=== PATIENT | female | born 1995 | race Caucasian/White ===

== ENCOUNTER 2019-05-12 17:05 | Emergency (ER) | payer BC ==
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
--- NOTE | 2019-05-12 18:11 | ER ---
Nurse's Notes [facility] Name: Lu Tiwari Age: 23 yrs Sex: Female : 1995 Arrival Date: 05/12/2019 Time: 17:07 Bed 8 Private MD: Diagnosis: Contusion of right knee Presentation: 05/12 17:09 Presenting complaint: Patient states: i fell on my RIGHT knee from standing like 2 tw2 hours ago, i have noticed some swelling and it feels like a lot of pressure. Transition of care: patient was not received from another setting of care. Onset of symptoms was May 12, 2019. Risk Assessment: Do you want to hurt yourself or someone else? Patient reports no desire to harm self or others. Initial Sepsis Screen: Does the patient meet any 2 criteria? No. Patient's initial sepsis screen is negative. Does the patient have a suspected source of infection? No. Patient's initial sepsis screen is negative. Care prior to arrival: None. 17:09 Method Of Arrival: Ambulatory tw2 17:09 Acuity: XANDER 4 tw2 Triage Assessment: 17:10 General: Appears in no apparent distress. Behavior is calm, cooperative, appropriate tw2 for age. Pain: Complains of pain in right knee. 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 - Social history:: Smoking status: . - Ebola Screening: : Patient denies travel to an Ebola-affected area in the 21 days before illness onset. - Family history:: not pertinent. - Hospitalizations: : No recent hospitalization is reported. Screenin:39 Abuse screen: Denies threats or abuse. Denies injuries from another. Nutritional aj1 screening: No deficits noted. Tuberculosis screening: No symptoms or risk factors identified. 19:00 Fall Risk None identified. aj1 Assessment: 17:39 General: Appears in no apparent distress. comfortable, Behavior is calm, cooperative, aj1 appropriate for age. Pain: Complains of pain in right knee. Neuro: Level of Consciousness is awake, alert, obeys commands, Oriented to person, place, time, situation. Cardiovascular: Patient's skin is warm and dry. Respiratory: Airway is patent Respiratory effort is even, unlabored, Respiratory pattern is regular, symmetrical. GI: No signs and/or symptoms were reported involving the gastrointestinal system. : No signs and/or symptoms were reported regarding the genitourinary system. EENT: No signs and/or symptoms were reported regarding the EENT system. Derm: No signs and/or symptoms reported regarding the dermatologic system. Skin is pink, warm \T\ dry. normal. Musculoskeletal: Range of motion: limited in right knee. 18:40 Reassessment: Patient appears in no apparent distress at this time. No changes from aj1 previously documented assessment. Patient and/or family updated on plan of care and expected duration. Pain level reassessed. Patient is alert, oriented x 3, equal unlabored respirations, skin warm/dry/pink. Vital Signs: 17:09 BP 122 / 71; Pulse 104; Resp 17; Temp 98.3; Pulse Ox 97% on R/A; Weight 55.34 kg (R); tw2 Pain 8/10; ED Course: 17:07 Patient arrived in ED. mr 17:09 Triage completed. tw2 17:11 Freedom Sinha MD is Attending Physician. rn 17:11 Arm band placed on. tw2 17:15 Elaine Hardwick, RN is Primary Nurse. aj1 17:39 Patient has correct armband on for positive identification. Bed in low position. Call aj1 light in reach. Side rails up X 1. 17:39 No provider procedures requiring assistance completed. aj1 18:28 XRAY Knee RIGHT 3 view In Process Unspecified. EDMS 18:59 Patient did not have IV access during this emergency room visit. Reynold wrap to right knee.aj1 Administered Medications: No medications were administered Outcome: 18:09 Discharge ordered by . rn 19:00 Discharged to home ambulatory. aj1 19:00 Condition: good 19:00 Discharge instructions given to patient, Instructed on discharge instructions, follow up and referral plans. Demonstrated understanding of instructions, follow-up care. 19:00 Patient left the ED. aj1 Signatures: Dispatcher [employer] EDGA Elaine Hardwick, RN RN aj1 Estefanía Velazquez mr Freedom Sinha MD MD rn Lee, LANETTE Clemente RN tw2
--- NOTE | 2019-05-12 18:40 | RAD REPORT ---
EXAM DESCRIPTION: RAD - Knee Right 3 View - 05/12/2019 6:26 pm CLINICAL HISTORY: Right knee pain status post injury FINDINGS: No fracture or dislocation is seen.
[2019-05-12 20:13] VITALS: BP 122/71; TEMP 98.3; O2SAT 97
== END 2019-05-12 19:00 | disposition home or self-care (01) ==
LOC: ER 17:05
DX: S80.01XA Contusion of right knee, initial encounter (principal); W18.30XA Fall on same level, unspecified, initial encounter; Y93.9 Activity, unspecified; Y92.9 Unspecified place or not applicable; Z88.6 Allergy status to analgesic agent; Z88.2 Allergy status to sulfonamides; Z88.8 Allergy status to other drugs, medicaments and biological substances
CPT/HCPCS: 99283

== ENCOUNTER 2019-08-09 23:24 | Emergency (ER) | payer BC ==
[2019-08-10] MEDS ORDERED: ONDANSETRON 4 MG/2 ML VIAL ONE (00:09)
[2019-08-10] MEDS ORDERED: NA CHLORIDE 0.9% 2,000 ML ONE (00:09)
[2019-08-10 01:09] LABS: Potassium 3.5 mmol/L (3.5-5.1)
--- NOTE | 2019-08-10 01:52 | EDPHYS ---
Physician Documentation [facility] Name: Lu Tiwari Age: 24 yrs Sex: Female : 1995 Arrival Date: 08/09/2019 Time: 23:27 Bed 14 Private MD: ED Physician Freedom Sinha HPI: 08/10 00:28 This 24 yrs old Female presents to ER via Wheelchair with complaints of rn ALCOHOL POISONING. 00:28 The patient presents with decreased mental status, decreased responsiveness. Possible rn causes: alcohol, has had a recent alcohol binge. Current symptoms: In the emergency department the patient's symptoms have improved. It is unknown whether or not the patient has had similar symptoms in the past. Significant other brought her in for possible ETOH poisoning, reports atleast 8 beers and tequila, + vomiting, and decreased responsiveness.. 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 - Coronavirus screen:: The patient has NOT traveled to [place], [place], or [place] in the past 14 days. Proceed with normal triage process as indicated. The patient has NOT had contact with known/suspected case of Coronavirus? Proceed with normal triage procedures. - Social history:: Smoking status: Patient denies any tobacco usage or history of. - Family history:: not pertinent. - Ebola Screening: : No symptoms or risks identified at this time. - Hospitalizations: : No recent hospitalization is reported. ROS: 08/10 00:28 Constitutional: Negative for fever, chills, and weight loss, Eyes: Negative for injury, rn pain, redness, and discharge, Neck: Negative for injury, pain, and swelling, Cardiovascular: Negative for chest pain, palpitations, and edema, Respiratory: Negative for shortness of breath, cough, wheezing, and pleuritic chest pain, Abdomen/GI: + nausea/vomiting MS/Extremity: Negative for injury and deformity, Skin: Negative for injury, rash, and discoloration, Neuro: Negative for headache, numbness, tingling, and seizure. Exam: 00:28 Constitutional: This is a well developed, well nourished patient who is awake, alert, rn somnolent but easily arousable to voice Head/Face: Normocephalic, atraumatic. Eyes: Pupils equal round and reactive to light, extra-ocular motions intact. Lids and lashes normal. Conjunctiva and sclera are non-icteric and not injected. Cornea within normal limits. Periorbital areas with no swelling, redness, or edema. ENT: dry MM Cardiovascular: Regular rate and rhythm. No pulse deficits. Respiratory: No increased work of breathing, no retractions or nasal flaring. Abdomen/GI: soft, non-tender MS/ Extremity: Pulses equal, no cyanosis. Neurovascular intact. Full, normal range of motion. Equal circumference. Neuro: Awake, somnolent, GCS 15, oriented to person, place, time, and situation. Cranial nerves II-XII grossly intact. Motor strength 5/5 in all extremities. Sensory grossly intact. Vital Signs: 08/09 23:31 BP 160 / 96; Pulse 90; Resp 16; Temp 98.1; Pulse Ox 99% on R/A; Weight 54.43 kg; Height hb 5 ft. 3 in. (160.02 cm); Pain 0/10; 08/10 01:15 BP 107 / 73; Pulse 92; Resp 18; Pulse Ox 99% on R/A; wh 08/09 23:31 Body Mass Index 21.26 (54.43 kg, 160.02 cm) hb MDM: 08/09 23:56 Patient medically screened. rn 08/10 01:48 Differential Diagnosis: alcohol intoxication, volume depletion. Data reviewed: vital rn signs, nurses notes, lab test result(s), and as a result, I will discharge patient. Counseling: I had a detailed discussion with the patient and/or guardian regarding: the historical points, exam findings, and any diagnostic results supporting the discharge/admit diagnosis, lab results, the need for outpatient follow up, to return to the emergency department if symptoms worsen or persist or if there are any questions or concerns that arise at home. Response to treatment: the patient's symptoms have markedly improved after treatment, the patient is now symptom free, patient is well hydrated. and as a result, I will discharge patient. 01:50 ED course: Pt awake, sobering up, tolerating PO, asymptomatic, stable vitals, requests rn to go home with significant other and sleep it off.. 08/10 00:49 Order name: Basic Metabolic Panel; Complete Time: 01:10 EDMS 08/10 00:49 Order name: Alcohol Serum/Plasma; Complete Time: 01:51 EDMS 08/10 00:02 Order name: IV Start; Complete Time: 00:11 rn Administered Medications: 00:20 Drug: NS 0.9% 1000 ml Route: IV; Rate: 1000 ml; Site: right antecubital; ch2 02:01 Follow up: Response: No adverse reaction; IV Status: Completed infusion 00:20 Drug: NS 0.9% 1000 ml Route: IV; Rate: 1000 ml; Site: right antecubital; ch2 02:00 Follow up: Response: No adverse reaction; IV Status: Completed infusion 00:20 Drug: Zofran 4 mg Route: IVP; Site: right antecubital; ch2 02:01 Follow up: Response: No adverse reaction; Nausea is decreased wh Disposition: 08/10/19 01:51 Discharged to Home. Impression: Alcohol abuse with intoxication. - Condition is Stable. - Discharge Instructions: Alcohol Intoxication. - Medication Reconciliation Form, Thank You Letter, Antibiotic Education, Prescription Opioid Use form. - Follow up: Private Physician; When: As needed; Reason: Recheck today's complaints, Re-evaluation by your physician. - Problem is new. - Symptoms have improved. Signatures: Dispatcher [employer] [facility] Freedom Sinha MD MD rn Baxter, Heather, RN RN Ash Johnson Tata Moreno RN RN ch2 Corrections: (The following items were deleted from the chart) 02:04 01:51 08/10/2019 01:51 Discharged to Home. Impression: Alcohol abuse with intoxication. wh Condition is Stable. Forms are Medication Reconciliation Form, Thank You Letter, Antibiotic Education, Prescription Opioid Use. Follow up: Private Physician; When: As needed; Reason: Recheck today's complaints, Re-evaluation by your physician. Problem is new. Symptoms have improved. rn
--- NOTE | 2019-08-10 01:52 | ER ---
Nurse's Notes [facility] Name: Lu Tiwari Age: 24 yrs Sex: Female : 1995 Arrival Date: 08/09/2019 Time: 23:27 Bed 14 Private MD: Diagnosis: Alcohol abuse with intoxication Presentation: 08/09 23:30 Presenting complaint: Significant other states: "She drank 8 beers and half a bottle of hb tequila, has been vomiting, I think she has alcohol poisoning.". Transition of care: patient was not received from another setting of care. Onset of symptoms was August 09, 2019. Risk Assessment: Do you want to hurt yourself or someone else? Patient reports no desire to harm self or others. Care prior to arrival: None. 23:30 Method Of Arrival: Wheelchair hb 23:30 Acuity: XANDER 3 08/10 00:30 Initial Sepsis Screen: Does the patient meet any 2 criteria? No. Patient's initial sepsis screen is negative. Does the patient have a suspected source of infection? No. Patient's initial sepsis screen is negative. 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 - Coronavirus screen:: The patient has NOT traveled to [place], [place], or [place] in the past 14 days. Proceed with normal triage process as indicated. The patient has NOT had contact with known/suspected case of Coronavirus? Proceed with normal triage procedures. - Social history:: Smoking status: Patient denies any tobacco usage or history of. - Family history:: not pertinent. - Ebola Screening: : No symptoms or risks identified at this time. - Hospitalizations: : No recent hospitalization is reported. Screenin/26 00:30 Abuse screen: Denies threats or abuse. Denies injuries from another. Nutritional wh screening: No deficits noted. Tuberculosis screening: No symptoms or risk factors identified. Fall Risk None identified. Assessment: 00:10 General: Appears in no apparent distress. Behavior is drowsy, Smells of alcohol. Pain: wh Denies pain. Neuro: Level of Consciousness is awake, alert, obeys commands, Oriented to person, place, time, situation, Appropriate for age. Cardiovascular: Heart tones S1 S2. Respiratory: Airway is patent Respiratory effort is even, unlabored, Respiratory pattern is regular, symmetrical, Breath sounds are clear bilaterally. GI: Abdomen is flat, non-distended, Parent/caregiver reports the patient having nausea, vomiting. : No signs and/or symptoms were reported regarding the genitourinary system. EENT: No signs and/or symptoms were reported regarding the EENT system. Derm: Skin is intact, is healthy with good turgor, Skin is pink, warm \\T\\ dry. normal. Musculoskeletal: Circulation, motion, and sensation intact. : Reassessment: Patient appears in no apparent distress at this time. No changes from previously documented assessment. Patient and/or family updated on plan of care and expected duration. Pain level reassessed. Patient is alert, oriented x 3, equal unlabored respirations, skin warm/dry/pink. Vital Signs: 08/09 23:31 BP 160 / 96; Pulse 90; Resp 16; Temp 98.1; Pulse Ox 99% on R/A; Weight 54.43 kg; Height hb 5 ft. 3 in. (160.02 cm); Pain 0/10; 08/10 01:15 BP 107 / 73; Pulse 92; Resp 18; Pulse Ox 99% on R/A; wh 08/09 23:31 Body Mass Index 21.26 (54.43 kg, 160.02 cm) hb ED Course: 08/09 23:27 Patient arrived in ED. [id number] 23:31 Triage completed. hb 23:32 Arm band placed on. hb 23:56 Freedom Sinha MD is Attending Physician. rn 08/10 00:11 Inserted saline lock: 20 gauge in right antecubital area, using aseptic technique. oe Blood collected. 00:28 Ash Johnson is Primary Nurse. 00:30 Patient has correct armband on for positive identification. Bed in low position. Call light in reach. Side rails up X 1. Adult w/ patient. Pulse ox on. NIBP on. 01:58 No provider procedures requiring assistance completed. IV discontinued, intact, bleeding controlled, No redness/swelling at site. Administered Medications: 00:20 Drug: NS 0.9% 1000 ml Route: IV; Rate: 1000 ml; Site: right antecubital; [facility] 02:01 Follow up: Response: No adverse reaction; IV Status: Completed infusion 00:20 Drug: NS 0.9% 1000 ml Route: IV; Rate: 1000 ml; Site: right antecubital; ch2 02:00 Follow up: Response: No adverse reaction; IV Status: Completed infusion 00:20 Drug: Zofran 4 mg Route: IVP; Site: right antecubital; ch2 02:01 Follow up: Response: No adverse reaction; Nausea is decreased Outcome: 01:51 Discharge ordered by MD. rn 01:58 Discharged to home ambulatory, with family. 01:58 Condition: stable 01:58 Discharge instructions given to patient, family, Instructed on discharge instructions, follow up and referral plans. POC Demonstrated understanding of instructions, follow-up care, POC 02:04 Patient left the ED. Signatures: Freedom Sinha MD MD rn Baxter, Heather, RN RN hb [place]spin[place], Orlando oe [place], Winsy Tata Moreno RN RN [facility] Davina Pham [id number]
[2019-08-10 03:04] VITALS: TEMP 98.1; O2SAT 99
[2019-08-10 03:06] VITALS: BP 107/73
== END 2019-08-10 02:04 | disposition home or self-care (01) ==
LOC: ER 23:24
DX: F10.129 Alcohol abuse with intoxication, unspecified (principal); Z88.6 Allergy status to analgesic agent; Z88.2 Allergy status to sulfonamides
CPT/HCPCS: 96361; 80048; 36415; 80320; 96374; 99284; J7030; J2405

== ENCOUNTER 2020-06-09 13:24 | Emergency (ER) | payer BC, OTHER ==
--- OUTSIDE RECORDS SUMMARY | 2020-06-09 13:56 | XMS REPORT | Summary of Care ---
:1995 Author Organization [facility] Address [address] [place] [address] Care Team Providers Name Role Phone Pcp, Does Not Have A Primary Care Provider Reason for Visit Reason Comments Referral/consult Ultrasound Encounter Details Date Type Department Care Team Description 05/31/2020 Telephone [facility] Shannon Canas, Referral/c [facility] [address] [facility] [address] [place] [phone] Allergies Active Allergy Reactions Severity Noted Date Comments Morphine Anaphylaxis, Hives High 05/26/2020 Sulfa (Sulfonamide Antibiotics) Anaphylaxis, Hives High 05/2020 documented as of this encounter (statuses as of 05/31/2020) Medications Medication Sig Dispensed Refills Start Date End Date Status multivitamin Take 1 tablet by 0 Active ( VITAMIN) mouth daily. tablet proMETHazine 12.5 mg Take 1 tablet by 30 tablet 1 05/26/2020 Active tabletIndications: mouth every 6 Supervision of other (six) hours as high risk pregnancies, needed for Nausea first trimester, and Vomiting (N/V) Nausea and vomiting for up to 60 during prior doses. to 22 weeks gestation documented as of this encounter (statuses as of 05/31/2020) Active Problems Problem Noted Date Previous delivery affecting 020 Hx of twin in prior 05/26/2020 Estimated Date of Delivery Comments Yes 01/03/2021 Based on last menstr ual period of 03/29/2020 (Exact Date) documented as of this encounter (statuses as of 05/31/2020) Immunizations Name Administration Dates Next Due HIB 4 Dose Schedule 10/10/1994 Influenza Virus Vaccine Quad .5 mL IM 05/26/2020 (Deferred: Patient Refused) 6+ MO MMR 10/10/1994 PPD (TB) 10/10/1994 documented as of this encounter Social History Tobacco Use Types Packs/Day Years Used Date Never Smoker Smokeless Tobacco: Never Used Alcohol Use Drinks/Week oz/Week Comments Never Alcohol Habits Answer Date Recorded How often do you have a drink containing alcohol? Never 05/26/2020 How many drinks containing alcohol do you have on a typical Not asked day when you are drinking? How often do you have six or more drinks on one occasion? 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 documented as of this encounter Last Filed Vital Signs Not on filedocumented in this encounter Miscellaneous Notes Telephone Encounter - Yamileth Fulton - 05/31/2020 1:19 PM Floyd Tiwari is a 24 year old female Patient has been approved for medicaid she is requesting USG appointment. elephone Encounter - Radha Meza RN - 05/31/2020 10:21 AM CSTCalled patient, notified her that we will let the financial screeners know to update and then we will place order for US appointment to be made. Pt v/u. elephone Encounter - Chelsie Pantoja - 05/31/2020 8:02 AM CSTLu Tiwari is a 24 year old female Patient stated she received her insurance and was told to call one she gets it to get her ultrasound. Please call and advise documented in this encounter Plan of Treatment Date Type Specialty Care Team Description 06/16/2020 Routine Visit OB Satellites Salazar Canas, [facility] [address] [place] [phone] Health Maintenance Due Date Last Done Comments DTaP,Tdap,and Td Vaccines (1 - 2012 Tdap) PAP SMEAR 2014 HPV VACCINES (1 - 2-dose series) 07/26/2020 Postponed from 2004 (Refused) INFLUENZA VACCINE (#1) 2021 Postponed from 03/16/2020 (Refused) Depression Screening 05/26/2021 05/26/2020 VARICELLA VACCINES (1 of 2 - 05/26/2021 Pos tponed from 1994 2-dose childhood series) (Refuse d) PNEUMOCOCCAL 0-64 YEARS COMBINED Aged Out No longer eligible based on SERIES patient's age to complete this topic documented as of this encounter Results Not on filedocumented in this encounter Insurance Payer Benefit Plan / Subscriber ID Effective Dates Phone Addre ss Type Group [facility] MEDICAID OF [id number] 2020-Niharika [phone] [address] [place] t [id number] [place] [address] documented as of this encounter
--- OUTSIDE RECORDS SUMMARY | 2020-06-09 13:56 | XMS REPORT | Summary of Care ---
:1995 Author Organization [facility] Address [address] [place] [address] Care Team Providers Name Role Phone Pcp, Does Not Have A Primary Care Provider Reason for Visit Reason Comments Prescription nausea and vomit - phenergan not working - Dicligis ordered Encounter Details Date Type Department Care Team Description 06/02/2020 Case Management [facility] Shannon Canas, Prescri ption (nausea [facility] and vomit - phenergan [address] [facility] [address] [facility] not worki ng - [facility] Dicligis ordered) [place] [phone] Allergies Active Allergy Reactions Severity Noted Date Comments Morphine Anaphylaxis, Hives High 05/26/2020 Sulfa (Sulfonamide Antibiotics) Anaphylaxis, Hives High 05/2020 documented as of this encounter (statuses as of 06/02/2020) Medications Medication Sig Dispensed Refills Start Date End Date Status multivitamin Take 1 tablet by 0 Active ( VITAMIN) mouth daily. tablet proMETHazine 12.5 mg Take 1 tablet by 30 tablet 1 05/26/2020 Active tabletIndications: mouth every 6 Supervision of other (six) hours as high risk needed for Nausea pregnancies, first and Vomiting trimester, Nausea and (N/V) for up to vomiting during 60 doses. prior to 22 weeks gestation doxylamine-pyridoxine Take 2 tablets by 60 tablet 1 06/02/2020 2020 Active , vit B6, (DICLEGIS) mouth at bedtime 10-10 mg per for 60 days. tabletIndications: Nausea and vomiting during prior to 22 weeks gestation, Supervision of other high risk pregnancies, first trimester, Previous delivery affecting documented as of this encounter (statuses as of 06/02/2020) Active Problems Problem Noted Date Previous delivery affecting 020 Hx of twin in prior 05/26/2020 Estimated Date of Delivery Comments Yes 01/03/2021 Based on last menstr ual period of 03/29/2020 (Exact Date) documented as of this encounter (statuses as of 06/02/2020) Immunizations Name Administration Dates Next Due HIB [...] with No / Unsure 05/26/2020 1:[address]ER someone who was confirmed or suspected to have Coronavirus / COVID-19? documented as of this encounter Last Filed Vital Signs Not on filedocumented in this encounter Plan of Treatment Date Type Specialty Care Team Description 06/04/2020 Principal Statistical Programmer Visit Maternal Medicine 06/16/2020 Routine OB Satellites Shannon Canas, Visit [facility] [address] [place] [phone] Health Maintenance Due Date Last Done Comments DTaP,Tdap,and Td Vaccines ( - 2012 Tdap) PAP SMEAR 2014 HPV [...] Results Not on filedocumented in this encounter Visit Diagnoses Diagnosis Nausea and vomiting during miguel a or to 22 weeks gestation - Primary Supervision of other high risk pregnanci es, first trimester Previous delivery affecting pre gnancy Previous delivery, unspecified as to episode of care or not applicable documented in this encounter Insurance Payer Benefit Plan / Subscriber ID Effective Dates Phone Addre ss Type Group [employer] MEDICAID OF [id number] 2020-Niharika [phone] Medicaid [place] t [id number] [place] [address] documented as of this encounter
--- OUTSIDE RECORDS SUMMARY | 2020-06-09 13:56 | XMS REPORT | Summary of Care ---
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 documented as of this encounter Last Filed Vital Signs Not on filedocumented in this encounter Plan of Treatment Date Type Specialty Care Team Description 06/04/2020 Staff Analyst Visit Maternal Medicine 06/16/2020 Routine OB Satellites Shannon Canas, Visit [facility] [address] [place] [phone] Health Maintenance Due Date Last Done Comments [...] Addre ss Type Group [employer] MEDICAID OF [id number] 2020-Niharika [phone] [address] Medicaid [place] t [id number] [place] [address] documented as of this encounter
--- OUTSIDE RECORDS SUMMARY | 2020-06-09 13:56 | XMS REPORT | Summary of Care ---
:1995 Author Organization [facility] Address [address] [place] [address] Care Team Providers Name Role Phone Pcp, Does Not Have A Primary Care Provider Reason for Referral (Routine) Status Reason Specialty Diagnoses / Referred By Referred To Procedures Contact Contact New Request Maternal Diagnoses Supervision of other high risk pregnancies, first trimester Previous delivery affecting Hx of twin in prior BMI 21.0-21.9, adult Shannon Canas Medicine Procedures CONSULT MATERNAL MEDICINE ULTRASOUND Preferred Location: [facility] [address] [phone] Reason for Visit Reason Comments ULTRASOUND Requested - Dating Encounter Details Date Type Department Care Team Description 05/31/2020 Case Management [facility] Shannon Caans PREGNAN CY ULTRASOUND [facility] (Requested - Dating [address] [place] [address] ) [place] [phone] Allergies Active Allergy Reactions Severity Noted Date [...] with No / Unsure 05/26/2020 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 documented as of this encounter Last Filed Vital Signs Not on filedocumented in this encounter Plan of Treatment Date Type Specialty Care Team Description 06/16/2020 Routine Visit OB Satellites Salazar Canas, [facility] [address] [place], [place] [phone] Health Maintenance Due Date Last Done Comments [...] filedocumented in this encounter Visit Diagnoses Diagnosis Supervision of other high risk pregnanci es, first trimester - Primary Previous delivery affecting pre gnancy Previous delivery, unspecified as to episode of care or not applicable Hx of twin in prior Personal history of other genital system and obstetric disorders BMI 21.0-21.9, adult documented in this encounter Insurance Payer Benefit Plan / Subscriber ID Effective Dates Phone Addre ss Type Group [employer] MEDICAID OF [id number] 2020-Niharika [phone] [address] Medicaid [place] t [id number] [place] [address] documented as of this encounter
--- OUTSIDE RECORDS SUMMARY | 2020-06-09 13:56 | XMS REPORT | Summary of Care ---
:1995 Author Organization [facility] Address [address] [place] [address] Care Team Providers Name Role Phone Pcp, Does Not Have A Primary Care Provider Reason for Visit Reason Comments Initial Visit Encounter Details Date Type Department Care Team Description 05/26/2020 Initial [facility] Shannon Canas Superv ision of other high risk pregnancies, first trimester (Primary Dx); Visit [facility] Previous delivery affecting pre gnancy; [address] [address] [address] Hx of twi n in prior ; [facility] BMI 21.0-21.9, adult; [place], [place] Absence of menstruation; [id number] Exposure to COVID-19 virus; [phone] Nausea and vomiting during miguel a or to 22 weeks gestation Allergies Active Allergy Reactions Severity Noted Date Comments Morphine Anaphylaxis, Hives High 05/26/2020 Sulfa (Sulfonamide Antibiotics) Anaphylaxis, Hives High 05/2020 documented as of this encounter (statuses as of 05/26/2020) Medications Medication Sig Dispensed Refills Start Date [...] as of this encounter (statuses as of 05/26/2020) Active Problems Problem Noted Date Previous delivery affecting 020 Hx of twin in prior 05/26/2020 Estimated Date of Delivery Comments Yes 01/03/2021 Based on last menstr ual period of 03/29/2020 (Exact Date) documented as of this encounter (statuses as of 05/26/2020) Immunizations Name Administration Dates Next Due HIB [...] with No / Unsure 05/26/2020 1:20 PM LETTER CARRIER someone who was confirmed or suspected to have Coronavirus / COVID-19? documented as of this encounter Last Filed Vital Signs Vital Sign Reading Time Taken Comments Blood Pressure 113/79 05/26/2020 1:20 PM LETTER CARRIER Pulse 96 05/26/2020 1:20 PM LETTER CARRIER Temperature 37.2 C (99 F) 05/26/2020 1:20 PM LETTER CARRIER Respiratory Rate 20 05/26/2020 1:20 PM LETTER CARRIER Oxygen Saturation - - Inhaled Oxygen Concentration - - Weight 52.7 kg (116 lb 3.2 oz) 05/26/2020 1:20 PM LETTER CARRIER Height 154.9 cm (5' 1") 05/26/2020 1:20 PM LETTER CARRIER Body Mass Index 21.96 05/26/2020 1:20 PM LETTER CARRIER documented in this encounter Progress Notes Shannon Canas, CNP - 05/26/2020 1:30 PM CST Chief complaint: Chief Complaint Patient presents with Initial Visit CC: Initial Visit Lu Tiwari is a 24 year old, , /White female. Patient's last menstrual period was 03/29/2020 (exact date). She is 8w2d with an intrauterine . Her Estimated Date of Delivery: 01/03/21. She is being seen today for her first obstetrical visit. She complains today of: Nausea. She reports daily episodes of nausea over 1-2 wks which occurs intermittently. Patient tolerates liquids and some food. Associated symptom(s) include dry heaves. Symptoms are worse with food odors and smoke. Symptoms are relieved with avoidance of odors and crackers. Vomiting. She reports 2 episodes of vomiting over 1-2 week(s) and occurs in the mornings. Associated symptom(s) include nausea. Symptoms are worse with foods, liquids and odors. OB History T1 L3 SAB0 TAB0 Ectopic0 Multiple1 Live Births3 Name of Baby 1: Not recorded Date: 05/13/11 GA: 38w0d Delivery: Normal Spontaneous Vaginal Apgar1: Not recorded Apgar5: Not recorded Living: Living Name of Baby 2A: Not recorded Date: 11/13/12 GA: 30w0d Delivery: , Low Transverse Apgar1: Not recorded Apgar5: Not recorded Living: Living Name of Baby 2B: Not recorded Date: 11/13/12 GA: 30w0d Delivery: , Low Transverse Apgar1: Not recorded Apgar5: Not recorded Living: Living Name of Baby 3: Not recorded Date: Not recorded GA: Not recorded Delivery: Not recorded Apgar1: Not recorded Apgar5: Not recorded Living: Not recorded Histories OB History Para Term AB Living 3 2 1 1 0 3 SAB TAB Ectopic Multiple Live Births 0 0 0 1 3 # Outcome Date GA Lbr Alli/2nd Weight Sex Delivery Anes PTL Lv 3 Current 2A 11/13/12 30w0d 6 lb (2.722 kg) M , L Spinal Y JOHNATHON Complications: Other (See Comments), Premature rupture of membranes 2B 05/01/13 30w0d 5 lb (2.268 kg) F , L Spinal N JOHNATHON Complications: Premature rupture of membranes 1 Term 05/13/11 38w0d 7 lb (3.175 kg) F NORMAL SPONT None JOHNATHON Past Medical History: Diagnosis Date Anemia 2010 no medication taken. Hx of blood transfusion after deliveries x 3 Family History Problem Relation Age of Onset No Significant Medical Problems Mother No Significant Medical Problems Father No Significant Medical Problems Sister Psychiatry Brother No Significant Medical Problems Maternal Aunt No Significant Medical Problems Maternal Uncle No Significant Medical Problems Paternal Aunt No Significant Medical Problems Paternal Uncle No Significant Medical Problems Maternal Grandmother Cancer Maternal Grandfather No Significant Medical Problems Paternal Grandmother No Significant Medical Problems Paternal Grandfather No Significant Medical Problems Other Family Status Relation Name Status Mo (Not Specified) Fa (Not Specified) Sis (Not Specified) Bro Other Severe Bi-Polar MAunt (Not Specified) MUnc (Not Specified) PAunt (Not Specified) PUnc (Not Specified) MGMo (Not Specified) MGFa Other cardiac cancer PGMo (Not Specified) PGFa (Not Specified) OTHER (Not Specified) Past Surgical History: Procedure Laterality Date SECTION 2010 and 2012 Social History Socioeconomic History Marital status: Single Spouse name: Not on file Number of children: Not on file Years of education: Not on file Highest education level: Not on file Occupational History Not on file Social Needs Financial resource strain: Not on file Food insecurity Worry: Not on file Inability: Not on file Transportation needs Medical: Not on file Non-medical: Not on file Tobacco Use Smoking status: Never Smoker Smokeless tobacco: Never Used Substance and Sexual Activity Alcohol use: Never Frequency: Never Drug use: Never Sexual activity: Yes Partners: Male control/protection: None Lifestyle Physical activity Days per week: Not on file Minutes per session: Not on file Stress: Not on file Relationships Social connections Talks on phone: Not on file Gets together: Not on file Attends roman catholic service: Not on file Active member of club or organization: Not on file Attends meetings of clubs or organizations: Not on file Relationship status: Not on file Intimate partner violence Fear of current or ex partner: Not on file Emotionally abused: Not on file Physically abused: Not on file Forced sexual activity: Not on file Other Topics Concern Not on file Social History Narrative Lives in an apartment with her children, feels safe, denies abuse or violence at this time. Social History Substance and Sexual Activity Sexual Activity Yes Partners: Male control/protection: None Genetic Screen No Significant History of Genetic Disorders: No Significant History of Genetic Disorders Labs Labs are pending. Radiology No new radiology. Allergies Lu is allergic to morphine and sulfa (sulfonamide antibiotics). Medications Lu has a current medication list which includes the following prescription(s): vitamin and promethazine. Review of Systems Constitutional: Negative for activity change, appetite change, fatigue, fever and unexpected weight change. Eyes: Negative for photophobia, pain, discharge, redness, itching and visual disturbance. Respiratory: Negative for shortness of breath. Breasts: Negative for discharge, mass, pain and unequal size. Cardiovascular: Negative for chest pain, palpitations and leg swelling. Gastrointestinal: Negative for abdominal pain, diarrhea, nausea and vomiting. Genitourinary: Negative for dysuria, urgency, frequency, vaginal bleeding, vaginal discharge, difficulty urinating, vaginal pain and dyspareunia. Musculoskeletal: Negative for arthralgias, back pain, gait problem, joint swelling, myalgias and neck stiffness. Skin: Negative for color change, pallor, rash and wound. Neurological: Negative for dizziness, light-headedness and headaches. Psychiatric/Behavioral: Negative for sleep disturbance and suicidal ideas. BP 113/79 (BP Location: Left arm, Patient Position: Sitting) | Pulse 96 | Temp 37.2 C (99 F) (Oral) | Resp 20 | Ht 5' 1" (1.549 m) | Wt 116 lb 3.2 oz (52.7 kg) | LMP 03/29/2020 (Exact Date) | BMI 21.96 kg/m Pregravid BMI: 21.93 Physical Exam Vitals reviewed. Constitutional: She is oriented to person, place, and time. She appears well- developed, well-nourished and well-groomed. Her body habitus is normal. She has no deformities. Cardiovascular: Regular rate and rhythm. Pulmonary/Chest: Normal inspiratory effort. Neuro/Psychiatric: She has a normal mood and affect. She is oriented to person, place, and time. PHYSICAL: General Exam: Abdomen: Normal Skin: Normal Extremities: Normal Pelvic Exam: Membrane status: Intact Uterus: 8 Weeks Assessment/Plan - See OB Summary Note Pt denies any current abuse and feels safe at home Immunizations reviewed. If necessary patient advised to obtain vaccines from local Health department. Pt denies any emotional, physical, or sexual abuse/trauma/depression. History reviewed and patient counseled as per [facility] teaching guidelines. A spring layer present in room upon examination. Pt advised to RTC to clinic PRN. Immunization History Administered Date(s) Administered HIB 4 Dose Schedule 10/10/1994 MMR 10/10/1994 PPD (TB) 10/10/1994 Pended Date(s) Pended Influenza Virus Vaccine Quad .5 mL IM 6+ MO 05/26/2020 Supervision of other high risk pregnancies, first trimester (primary encounter diagnosis) Comment: Plan: CBC WITH DIFF, GC & CHLAMYDIA AMPLIFIED ASSAY, HEPATITIS B SURFACE ANTIGEN, HIV 1/2 AG-AB WITH REFLEX, POCT URINALYSIS W SPECIFIC GRAVITY, WORKUP, BLOOD BANK, RUBELLA SCREEN (ISAC) IGG, GALV ONLY - SYPHILIS IGG/IGM, URINE CULTURE, Glucose 1 Hour Post Prandial, FLU VACC([id number]), 6+ MONTHS, IM, QUAD (FLUZONE/FLULAVAL/FLUARIX), SARS-COV-2 IGG, WORKUP, BLOOD BANK, POCT URINALYSIS W SPECIFIC GRAVITY, Glucose 1 Hour Post Prandial, proMETHazine 12.5 mg tablet Previous delivery affecting Comment: Plan: Hx of twin in prior Comment: Plan: BMI 21.0-21.9, adult Comment: Plan: Absence of menstruation Comment: Plan: POCT TEST Exposure to COVID-19 virus Comment: Plan: SARS-COV-2 IGG Nausea and vomiting during prior to 22 weeks gestation Comment: Plan: proMETHazine 12.5 mg tablet Return to clinic in 3 weeks. Discussed treatment options. Medications as ordered. Reviewed patient instructions and provided printed copy. at 8w2d This visit did not involve counseling and coordination that comprised more than 50% of the visit time. ER CARRIER Radha Meza RN - 05/26/2020 1:30 PM CSTPt here for initial OB visit. Pt states last pap was in 2018 and [facility] [place]. ZOEY signed by patient for records. No issues or problems with this so far. Suspects it may be twin gestation again. Has Nausea with . ER CARRIER documented in this encounter Miscellaneous Notes OB Summary Note - Shannon Canas WHCNP - 05/26/2020 1:30 PM CSTAge: 24 year old GA: 8w2d Plan USG with Funding - patient to notify with Medicaid Family Hx of Multiples then C/S for Twin IUP and 30wks per patient - NEED ZOEY Per patient allergic to Morphine - ZOEY pending for last delivery Happy about planned Nausea and many day vomit - ERX Phenergan - Breast pain - comfort measures BMI = 21 - TWG Goal 10-15lbs Flu Vaccine Declined NOB labs and education today denies any other problems Pt denies recent travel out of country, by herself or SO, Counseled regarding COVID 19 or ZIKA - Prevention discussed ER CARRIER documented in this encounter Plan of Treatment Date Type Specialty Care Team Description 06/16/2020 Routine Visit OB Satellites Salazar Canas WHCNP [address] [phone] Name Type Priority Associated Diagnoses Date/Ti me CBC WITH DIFF LAB Routine Supervision of other high 1 07/26/2019 2:36 PM LETTER CARRIER risk pregnancies, first trimester GC & CHLAMYDIA LAB Routine Supervision of other high 05/26/2020 2:36 PM LETTER CARRIER AMPLIFIED ASSAY risk pregnancies, first trimester HEPATITIS B SURFACE LAB Routine Supervision of other high 05/26/2020 2:36 PM LETTER CARRIER ANTIGEN risk pregnancies, first trimester HIV 1/2 AG-AB WITH LAB Routine Supervision of other h igh 05/26/2020 2:36 PM LETTER CARRIER REFLEX risk pregnancies, first trimester RUBELLA SCREEN (ISAC) LAB Routine Supervision of h er high 05/26/2020 2:36 PM LETTER CARRIER IGG risk pregnancies, first trimester GALV ONLY - SYPHILIS LAB Routine Supervision of other high 05/26/2020 2:36 PM LETTER CARRIER IGG/IGM risk pregnancies, first trimester URINE CULTURE LAB Routine Supervision of other high 1 07/26/2019 2:36 PM LETTER CARRIER risk pregnancies, first trimester Glucose 1 Hour Post LAB Routine Supervision of other high 05/26/2020 2:36 PM LETTER CARRIER Prandial risk pregnancies, first trimester SARS-COV-2 IGG LAB Routine Supervision of other high 05/26/2020 2:36 PM LETTER CARRIER risk pregnancies, first trimester Exposure to COVID-19 virus Name Type Priority Associated Diagnoses Order S chedule POCT URINALYSIS W LAB Routine Supervision of other 20 Occurrences SPECIFIC GRAVITY high risk starting pregnancies, first until 01/2021, 1 trimester completed WORKUP, LAB Routine Supervision of other Exp ected: 05/26/2020, BLOOD BANK high risk Expires: 2020 pregnancies, first trimester Glucose 1 Hour Post LAB Routine Supervision of other Expected: 05/26/2020, Prandial high risk Expires: 2020 pregnancies, first trimester FLU VACC([id number]), IMMUNIZATION/I Routine Supervision of oth er Ordered: 05/26/2020 6+ MONTHS, IM, QUAD NJECTION high risk (FLUZONE/FLULAVAL/FL pregnancies, first UARIX) trimester Health Maintenance Due Date Last Done Comments [...] this topic documented as of this encounter Procedures Procedure Name Priority Date/Time Associated Diagnosis Comme nts POCT URINALYSIS Routine 05/26/2020 2:44 Supervision of other Results for this PM LETTER CARRIER high risk procedure are i n pregnancies, first the resul ts trimester section. POCT TEST Routine 05/26/2020 1:24 Absence of Resu lts for this PM LETTER CARRIER menstruation procedure are i n the results section. documented in this encounter Results POCT URINALYSIS W SPECIFIC GRAVITY (05/26/2020 2:44 PM LETTER CARRIER) Pathologist Sig nature POCT U SP GRAV na 1.005 - 1.025 mg/dl POCT PH U 7 5 - 8 mg/dl POCT U LEUK EST 2+ Negative - Negative POCT U NIT neg Negative - Negative POCT U PROT trace Negative - Negative POCT U GLU neg Negative - Negative POCT U KETONE neg Negative - Negative POCT U UROBILI na 0.2 - 1 mg/dl POCT U BILI na Negative - Negative POCT U BLD neg Negative - Negative POCT U COLOR POCT U APPEAR Specimen Urine - URINE, CLEAN CATCH Impressions Performed At [facility] development and interpretation of all internal controls POCT TEST (05/26/2020 1:24 PM LETTER CARRIER) Pathologist Sig nature POCT PREG Positive On board controls acceptable Yes with C Line POCT PREG LOT # POCT PREG TEST DATE Specimen Urine - URINE, CLEAN CATCH documented in this encounter Visit Diagnoses Diagnosis Supervision of other high risk pregnanci es, first trimester - Primary Previous delivery affecting pre gnancy Previous delivery, unspecified as to episode of care or not applicable Hx of twin in prior Personal history of other genital system and obstetric disorders BMI 21.0-21.9, adult Absence of menstruation Exposure to COVID-19 virus Nausea and vomiting during miguel a or to 22 weeks gestation documented in this encounter Insurance Payer Benefit Plan / Subscriber ID Effective Phone Address T ype Group Dates MEDICAID MEDICAID PENDING 2020-Pre [address] [place] [address] Pending [place] [address] documented as of this encounter
--- OUTSIDE RECORDS SUMMARY | 2020-06-09 13:57 | XMS REPORT | Summary of Care ---
:1995 Author Organization [facility] Address [address] [place] [address] Care Team Providers Name Role Phone Pcp, Does Not Have A Primary Care Provider Reason for Visit Reason Comments ULTRASOUND (Routine) Status Reason Specialty Diagnoses / Referred By Referred To Procedures Contact Contact Closed Maternal Diagnoses Supervision of other high risk pregnancies, first trimester Previous delivery affecting Hx of twin in prior BMI 21.0-21.9, adult Shannon Canas, Medicine Procedures CONSULT MATERNAL MEDICINE ULTRASOUND Preferred Location: [address] [address] Encounter Details Date Type Department Care Team Description 06/04/2020 Book Editor Visit [facility] Sandoval Barker, Ma deshawn size-date discrepancy in first trimester; Ultrasound-Melanie PIEDRA Supervision of high risk in fi rst trimester; [address] Previous delivery, antepartum c ondition or complication; [address] [place], [place] w ith history of pre-term labor, first trimester; [facility] [phone] Dichorionic diamniotic twin in first trimester [place], [place] [phone] Allergies Active Allergy Reactions Severity Noted Date Comments Morphine Anaphylaxis, Hives High 05/26/2020 Sulfa (Sulfonamide Antibiotics) Anaphylaxis, Hives High 05/2020 documented as of this encounter (statuses as of 06/04/2020) Medications Medication Sig Dispensed Refills Start Date [...] as of this encounter (statuses as of 06/04/2020) Active Problems Problem Noted Date Previous delivery affecting 020 Hx of twin in prior 05/26/2020 Estimated Date of Delivery Comments Yes 01/03/2021 Based on last menstr ual period of 03/29/2020 (Exact Date) documented as of this encounter (statuses as of 06/04/2020) Immunizations Name Administration Dates Next Due HIB [...] been in contact with No / Unsure 06/04/2020 1:21 PM STATOR WINDER someone who was confirmed or suspected to have Coronavirus / COVID-19? documented as of this encounter Last Filed Vital Signs Not on filedocumented in this encounter Plan of Treatment Date Type Specialty Care Team Description 06/16/2020 Routine Visit OB Satellites Salazar Canas, [facility] [address] [place], [place] [phone] Health Maintenance Due Date Last Done Comments [...] filedocumented in this encounter Visit Diagnoses Diagnosis Uterine size-date discrepancy in first t rimester Uterine size date discrepancy, antepartu m condition or complication Supervision of high risk in rst trimester Unspecified high-risk Previous delivery, antepartum c ondition or complication with history of pre-term labor , first trimester Dichorionic diamniotic twin in first trimester Twin , antepartum documented in this encounter Insurance Payer Benefit Plan / Subscriber ID Effective Dates Phone Addre ss Type Group [facility] MEDICAID OF [id number] 2020-Presen [phone] Medicaid [place] t [id number] [place] [address] documented as of this encounter
[2020-06-09] MEDS ORDERED: ONDANSETRON 4 MG/2 ML VIAL ONE ×2 (14:05→15:44)
[2020-06-09] MEDS ORDERED: NA CHLORIDE 0.9% 1,000 ML ONE ×2 (14:05→15:44)
[2020-06-09 14:34] LABS: Absolute Lymphocytes (CBC) 2.1 K/uL (0.7-4.9); Basophils % 0.9 % (0-1.3); Hematocrit 37.7 % (36.0-45.0); Lymphocytes % 22.1 % (15.3-44.8); MPV 8.1 fL (7.6-11.3); RBC Red Blood Cell Count 4.47 M/uL (3.86-4.86)
[2020-06-09 14:50] LABS: BUN Blood Urea Nitrogen 9 mg/dL (7-18); Bicarbonate 25 mmol/L (21-32); Glucose Level 76 mg/dL (74-106); Potassium 3.5 mmol/L (3.5-5.1); Sodium Level 137 mmol/L (136-145)
--- NOTE | 2020-06-09 16:16 | EDPHYS ---
Physician Documentation [facility] Name: Lu Tiwari Age: 24 yrs Sex: Female : 1995 Arrival Date: 06/09/2020 Time: 13:26 Bed 20 Private MD: ED Physician Ramon Henley HPI: 06/09 16:33 This 24 yrs old Female presents to ER via Ambulatory with complaints of kb Dizziness, Vomiting - 9 wks preg. 16:33 The patient presents to the emergency department with nausea and vomiting. The kb estimated gestational age is 9 weeks. course: care: private OB physician, Leakage of Fluid: none appreciated, Ultrasound: the patient had an ultrasound, which was normal, Risk/complications: no obvious risks or complications are appreciated. Previous pregnancies: in previous pregnancies patient has had. Associated signs and symptoms: Pertinent positives: nausea, vomiting, Pertinent negatives: abdominal pain, chest pain, diarrhea, dysuria, fever, frequency, ruptured membranes, seizure, shortness of breath, vaginal bleeding, vaginal discharge. The patient has experienced similar episodes in the past, a few times. The patient has not recently seen a physician. 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 - Social history:: Smoking status: Patient denies any tobacco usage or history of. ROS: 16:29 Constitutional: Negative for fever, chills, and weight loss, Cardiovascular: Negative kb for chest pain, palpitations, and edema, Respiratory: Negative for shortness of breath, cough, wheezing, and pleuritic chest pain, Back: Negative for injury and pain, MS/Extremity: Negative for injury and deformity, Skin: Negative for injury, rash, and discoloration. 16:29 Abdomen/GI: Positive for nausea and vomiting, Negative for abdominal pain. 16:29 Neuro: Positive for dizziness. Exam: 16:33 Constitutional: This is a well developed, well nourished patient who is awake, alert, kb and in no acute distress. Head/Face: Normocephalic, atraumatic. Chest/axilla: Normal chest wall appearance and motion. Nontender with no deformity. No lesions are appreciated. Cardiovascular: Regular rate and rhythm with a normal S1 and S2. No gallops, murmurs, or rubs. Normal PMI, no JVD. No pulse deficits. Respiratory: Lungs have equal breath sounds bilaterally, clear to auscultation and percussion. No rales, rhonchi or wheezes noted. No increased work of breathing, no retractions or nasal flaring. Abdomen/GI: Soft, non-tender, with normal bowel sounds. No distension or tympany. No guarding or rebound. No evidence of tenderness throughout. Skin: Warm, dry with normal turgor. Normal color with no rashes, no lesions, and no evidence of cellulitis. MS/ Extremity: Pulses equal, no cyanosis. Neurovascular intact. Full, normal range of motion. Neuro: Awake and alert, GCS 15, oriented to person, place, time, and situation. Cranial nerves II-XII grossly intact. Motor strength 5/5 in all extremities. Sensory grossly intact. Cerebellar exam normal. Normal gait. Vital Signs: 13:35 BP 115 / 85; Pulse 100; Resp 17; Temp 98.3; Pulse Ox 100% ; Pain 4/10; ll1 13:50 BP 100 / 68 LA Supine (auto/reg); Pulse 95; Pulse Ox 100% on R/A; jp3 13:52 BP 108 / 79 LA Sitting (auto/reg); Pulse 94; Pulse Ox 100% on R/A; jp3 13:54 BP 105 / 80 LA Standing (auto/reg); Pulse 54; Pulse Ox 100% on R/A; jp3 15:19 BP 99 / 69; Pulse 78; Resp 18; Pulse Ox 100% on R/A; em 16:00 BP 92 / 57; Pulse 91; Resp 18; Pulse Ox 100% on R/A; em 13:50 Pt reported feeling nauseous jp3 13:52 Pt reported feeling dizzy jp3 13:54 Pt reported feeling sick; very nauseous at first and then very dizzy. jp3 MDM: 13:31 Patient medically screened. kb 16:14 Data reviewed: vital signs, nurses notes. Data interpreted: Pulse oximetry: on room air kb is 100 %. Interpretation: normal. Counseling: I had a detailed discussion with the patient and/or guardian regarding: the historical points, exam findings, and any diagnostic results supporting the discharge/admit diagnosis, lab results, the need for outpatient follow up, an OB/Gyne specialist, to return to the emergency department if symptoms worsen or persist or if there are any questions or concerns that arise at home. 06/09 13:44 Order name: CBC with Diff; Complete Time: 14:40 kb 06/09 13:44 Order name: Basic Metabolic Panel; Complete Time: 14:50 kb 06/09 15:24 Order name: Urine Dipstick--Ancillary (enter results); Complete Time: 16:40 bd 06/09 13:44 Order name: IV Start; Complete Time: 14:24 kb 06/09 13:44 Order name: Orthostatics; Complete Time: 14:24 kb 06/09 13:44 Order name: Urine Dipstick-Ancillary (obtain specimen); Complete Time: 15:21 kb 06/09 14:51 Order name: PO challenge; Complete Time: 15:21 kb Administered Medications: 14:24 Drug: NS 0.9% 1000 ml Route: IV; Rate: 1000 ml; Site: right antecubital; em 15:21 Follow up: IV Status: Completed infusion; IV Intake: 1000ml em 14:24 Drug: Zofran (Ondansetron) 4 mg Route: IVP; Site: right antecubital; em 14:50 Follow up: Response: No adverse reaction; Marked relief of symptoms; Nausea is decreasedem 14:57 Follow up: Response: No adverse reaction; Marked relief of symptoms; Nausea is decreasedem 15:34 Drug: NS 0.9% 1000 ml Route: IV; Rate: 1000 ml; Site: right antecubital; em 16:10 Follow up: IV Status: Completed infusion; IV Intake: 1000ml em 15:34 Drug: Zofran (Ondansetron) 4 mg Route: IVP; Site: right antecubital; em 16:10 Follow up: Response: No adverse reaction; Marked relief of symptoms; Nausea is decreasedem Disposition: 06/09/20 16:15 Discharged to Home. Impression: Volume depletion, Vomiting of , unspecified. - Condition is Stable. - Discharge Instructions: Morning Sickness, [id number], Dehydration, Adult, [id number]. - Prescriptions for Diclegis 10- 10 mg Oral tablet,delayed release (DR/EC) - take 1 tablet by ORAL route once daily; 10 tablet. - Medication Reconciliation Form, Thank You Letter, Antibiotic Education, Prescription Opioid Use form. - Follow up: Emergency Department; When: As needed; Reason: Worsening of condition. Follow up: Private Physician; When: 2 - 3 days; Reason: Recheck today's complaints, Continuance of care, Re-evaluation by your physician. Addendum: 06/11/2020 11:04 Co-signature as Attending Physician, Ramon Henley MD. m a2 Signatures: Dispatcher [employer] EDYi Valenzuela, TITA VELIZ-Siddhartha Cook, RN RN Ramon Keith MD MD ma2 Goldy Yeager RN RN ll1 Corrections: (The following items were deleted from the chart) 06/09 16:35 16:33 5, 1, Living 3, LMP 04/03/2020 kb kb 17:04 16:15 06/09/2020 16:15 Discharged to Home. Impression: Volume depletion; Vomiting of em , unspecified. Condition is Stable. Forms are Medication Reconciliation Form, Thank You Letter, Antibiotic Education, Prescription Opioid Use. Follow up: Emergency Department; When: As needed; Reason: Worsening of condition. Follow up: Private Physician; When: 2 - 3 days; Reason: Recheck today's complaints, Continuance of care, Re-evaluation by your physician. kb
--- NOTE | 2020-06-09 16:16 | ER ---
Nurse's Notes [facility] Name: Lu Tiwari Age: 24 yrs Sex: Female : 1995 Arrival Date: 06/09/2020 Time: 13:26 Bed 20 Private MD: Diagnosis: Volume depletion;Vomiting of , unspecified Presentation: 06/09 13:35 Chief complaint: Patient states: N/V with dizziness and weakness for 1 week. G5, P3, ll1 with twins. LMP: 03/29. Coronavirus screen: Client denies travel out of the [place] in the last 14 days. At this time, the client does not indicate any symptoms associated with coronavirus-19. Ebola Screen: Patient denies travel to an Ebola-affected area in the 21 days before illness onset. Initial Sepsis Screen: Does the patient meet any 2 criteria? HR > 90 bpm. No. Patient's initial sepsis screen is negative. Does the patient have a suspected source of infection? Yes: Acute abdominal pain. Risk Assessment: Do you want to hurt yourself or someone else? Patient reports no desire to harm self or others. Onset of symptoms was June 02, 2020. 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 - Social history:: Smoking status: Patient denies any tobacco usage or history of. Screenin:40 Abuse screen: Denies threats or abuse. Nutritional screening: No deficits noted. em Tuberculosis screening: No symptoms or risk factors identified. Fall Risk None identified. Assessment: 14:00 General: Appears in no apparent distress. comfortable, Behavior is calm, cooperative, em Denies fever. Pain: Denies pain. Neuro: Level of Consciousness is awake, alert, obeys commands, Oriented to person, place, time, situation, Reports dizziness. Cardiovascular: Capillary refill < 3 seconds Patient's skin is warm and dry. Respiratory: Airway is patent Respiratory effort is even, unlabored, Respiratory pattern is regular, symmetrical. GI: Abdomen is flat, Reports nausea, vomiting. : Denies burning with urination, discharge, vaginal bleeding. Derm: Skin is intact, is healthy with good turgor, Skin is pink, warm \T\ dry. Musculoskeletal: Capillary refill < 3 seconds, Range of motion: intact in all extremities. 15:20 Reassessment: reports throwing up while in the restroom, provider notified. em 16:00 Reassessment: Patient appears in no apparent distress at this time. Patient and/or em family updated on plan of care and expected duration. Pain level reassessed. Patient is alert, oriented x 3, equal unlabored respirations, skin warm/dry/pink. Patient states feeling better. 16:11 Reassessment: significant other is on the way from [place], pt requests to stay em in the room. Vital Signs: 13:35 BP 115 / 85; Pulse 100; Resp 17; Temp 98.3; Pulse Ox 100% ; Pain 4/10; ll1 13:50 BP 100 / 68 LA Supine (auto/reg); Pulse 95; Pulse Ox 100% on R/A; jp3 13:52 BP 108 / 79 LA Sitting (auto/reg); Pulse 94; Pulse Ox 100% on R/A; jp3 13:54 BP 105 / 80 LA Standing (auto/reg); Pulse 54; Pulse Ox 100% on R/A; jp3 15:19 BP 99 / 69; Pulse 78; Resp 18; Pulse Ox 100% on R/A; em 16:00 BP 92 / 57; Pulse 91; Resp 18; Pulse Ox 100% on R/A; em 13:50 Pt reported feeling nauseous jp3 13:52 Pt reported feeling dizzy jp3 13:54 Pt reported feeling sick; very nauseous at first and then very dizzy. jp3 ED Course: 13:26 Patient arrived in ED. as 13:27 Yi Thakkar FNP-C is PHCP. kb 13:27 Ramon Henley MD is Attending Physician. kb 13:37 Triage completed. ll1 13:37 Arm band placed on Patient placed in an exam room, on a stretcher. ll1 13:40 Siddhartha Adorno, RN is Primary Nurse. em 13:40 Patient has correct armband on for positive identification. Bed in low position. Call em light in reach. Side rails up X2. 14:15 Initial lab(s) drawn, by me, sent to lab. Inserted saline lock: 20 gauge in right em antecubital area, using aseptic technique. Blood collected. 15:15 Urine collected: clean catch specimen, clear, jenny colored. jp3 16:52 No provider procedures requiring assistance completed. IV discontinued, intact, em bleeding controlled, No redness/swelling at site. Pressure dressing applied. Administered Medications: 14:24 Drug: NS 0.9% 1000 ml Route: IV; Rate: 1000 ml; Site: right antecubital; em 15:21 Follow up: IV Status: Completed infusion; IV Intake: 1000ml em 14:24 Drug: Zofran (Ondansetron) 4 mg Route: IVP; Site: right antecubital; em 14:50 Follow up: Response: No adverse reaction; Marked relief of symptoms; Nausea is decreasedem 14:57 Follow up: Response: No adverse reaction; Marked relief of symptoms; Nausea is decreasedem 15:34 Drug: NS 0.9% 1000 ml Route: IV; Rate: 1000 ml; Site: right antecubital; em 16:10 Follow up: IV Status: Completed infusion; IV Intake: 1000ml em 15:34 Drug: Zofran (Ondansetron) 4 mg Route: IVP; Site: right antecubital; em 16:10 Follow up: Response: No adverse reaction; Marked relief of symptoms; Nausea is decreasedem Intake: 15:21 IV: 1000ml; Total: 1000ml. em 16:10 IV: 1000ml; Total: 2000ml. em Outcome: 16:15 Discharge ordered by . kb 17:04 Patient left the ED. em Signatures: Yi Thakkar, KEREN-C STUMPER FELLER-CkSiddhartha Banks, RN RN em Mary Melton Jacob jp3 Goldy Yeager RN RN ll1
[2020-06-09 16:37] LABS: Urine Blood TRACE (NEG); Urine Glucose NEGATIVE (NEG); Urine Protein NEGATIVE (NEG); Urine Specific Gravity 1.015 (1.005-1.030); Urine pH 5.5 (5.0-7.0)
[2020-06-09 19:36] VITALS: TEMP 98.3; O2SAT 100
[2020-06-09 19:45] VITALS: BP 92/57
== END 2020-06-09 17:04 | disposition home or self-care (01) ==
LOC: ER 13:24
DX: O99.281 Endocrine, nutritional and metabolic diseases complicating pregnancy, first trimester (principal); E86.9 Volume depletion, unspecified; Z3A.09 9 weeks gestation of pregnancy; Z88.2 Allergy status to sulfonamides; Z88.5 Allergy status to narcotic agent; Z88.8 Allergy status to other drugs, medicaments and biological substances
CPT/HCPCS: 96361; 85025; 80048; 36415; 81003; 96374; 99284; J7030 ×2; J2405 ×2

== ENCOUNTER 2021-02-16 08:49 | Emergency (ER) | payer OTHER, SELFPAY ==
--- NOTE | 2021-02-16 10:39 | EDPHYS ---
Physician Documentation [facility] Name: Lu Tiwari Age: 25 yrs Sex: Female : 1995 Arrival Date: 02/16/2021 Time: 08:52 Bed 18 Private MD: JUJU Physician Temo Rodriguez HPI: 02/16 10:29 This 25 yrs old Female presents to ER via Ambulatory with complaints of kriss Chills, Sore Throat. 10:29 The patient presents with sore throat. The patient describes throat pain as burning. kriss Onset: The symptoms/episode began/occurred 2 day(s) ago. Severity of symptoms: At their worst the symptoms were mild, in the emergency department the symptoms are unchanged. Modifying factors: The symptoms are alleviated by. Associated signs and symptoms: The patient has no apparent associated signs or symptoms. The patient has not experienced similar symptoms in the past. 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 - Social history:: Smoking status: Patient denies any tobacco usage or history of. ROS: 10:30 Constitutional: Negative for fever, chills, and weight loss, ENT: Negative for injury, kriss pain, and discharge, Neck: Negative for injury, pain, and swelling, Cardiovascular: Negative for chest pain, palpitations, and edema, Respiratory: Negative for shortness of breath, cough, wheezing, and pleuritic chest pain, Abdomen/GI: Negative for abdominal pain, nausea, vomiting, diarrhea, and constipation, Back: Negative for injury and pain, : Negative for injury, bleeding, discharge, and swelling, MS/Extremity: Negative for injury and deformity, Skin: Negative for injury, rash, and discoloration, Neuro: Negative for headache, weakness, numbness, tingling, and seizure, Psych: Negative for depression, anxiety, suicide ideation, homicidal ideation, and hallucinations, Allergy/Immunology: Negative for hives, rash, and allergies, Endocrine: Negative for neck swelling, polydipsia, polyuria, polyphagia, and marked weight changes, Hematologic/Lymphatic: Negative for swollen nodes, abnormal bleeding, and unusual bruising. 10:30 Eyes: Positive for itching, of the outer aspect of conjuctiva of left eye, iris of left eye and inner aspect of conjunctiva of left eye. Exam: 10:30 Constitutional: This is a well developed, well nourished patient who is awake, alert, kriss and in no acute distress. Head/Face: Normocephalic, atraumatic. Neck: Trachea midline, no thyromegaly or masses palpated, and no cervical lymphadenopathy. Supple, full range of motion without nuchal rigidity, or vertebral point tenderness. No Meningismus. Chest/axilla: Normal chest wall appearance and motion. Nontender with no deformity. No lesions are appreciated. Cardiovascular: Regular rate and rhythm with a normal S1 and S2. No gallops, murmurs, or rubs. Normal PMI, no JVD. No pulse deficits. Respiratory: Lungs have equal breath sounds bilaterally, clear to auscultation and percussion. No rales, rhonchi or wheezes noted. No increased work of breathing, no retractions or nasal flaring. Abdomen/GI: Soft, non-tender, with normal bowel sounds. No distension or tympany. No guarding or rebound. No evidence of tenderness throughout. Back: No spinal tenderness. No costovertebral tenderness. Full range of motion. Female : Normal external genitalia. Skin: Warm, dry with normal turgor. Normal color with no rashes, no lesions, and no evidence of cellulitis. MS/ Extremity: Pulses equal, no cyanosis. Neurovascular intact. Full, normal range of motion. Neuro: Awake and alert, GCS 15, oriented to person, place, time, and situation. Cranial nerves II-XII grossly intact. Motor strength 5/5 in all extremities. Sensory grossly intact. Cerebellar exam normal. Normal gait. Psych: Awake, alert, with orientation to person, place and time. Behavior, mood, and affect are within normal limits. 10:30 Eyes: Conjunctiva: injected, in the left eye. 10:30 ENT: Posterior pharynx: Tonsils: with erythema, Uvula: midline, swelling, that is mild, erythema, that is mild. Vital Signs: 09:07 BP 104 / 62; Pulse 90; Resp 14; Temp 98.7(TE); Pulse Ox 100% on R/A; Weight 53.07 kg; ss Height 5 ft. 0 in. (152.40 cm); Pain 6/10; 10:56 BP 96 / 56; Pulse 97; Resp 15; Pulse Ox 97% ; Pain 0/10; ll1 09:07 Body Mass Index 22.85 (53.07 kg, 152.40 cm) ss MDM: 09:05 Patient medically screened. kriss 10:30 Differential diagnosis: Allergic rhinitis, peritonsillar abscess pharyngitis, kriss tonsillitis, upper respiratory infection, uvulitis. Data reviewed: vital signs, nurses notes, lab test result(s). 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 Test interpretation: by ED physician or midlevel provider: ECG, plain radiologic studies. Counseling: I had a detailed discussion with the patient and/or guardian regarding: the historical points, exam findings, and any diagnostic results supporting the discharge/admit diagnosis, lab results, radiology results, the need for outpatient follow up. 02/16 09:07 Order name: Strep; Complete Time: 10:29 kriss 02/16 09:49 Order name: Throat Culture EDMS 02/16 10:37 Order name: SARS-COV-2 RT PCR EDMS Administered Medications: 10:36 CANCELLED (Duplicate Order): Augmentin (Amoxicillin-Clavulanate) 875 mg PO once kriss 10:56 Drug: Zithromax (azithromycin) 500 mg Route: PO; ll1 10:56 Drug: predniSONE 40 mg Route: PO; ll1 Disposition Summary: 02/16/21 10:38 Discharge Ordered Location: Home [facility] Problem: new kriss Symptoms: have improved kriss Condition: Stable kriss Diagnosis - Unspecified acute conjunctivitis, left eye kriss - Acute pharyngitis, unspecified kriss - Coronavirus infection, unspecified - covid 19 kriss Followup: kriss - With: Private Physician - When: 2 - 3 days - Reason: Recheck today's complaints, Continuance of care, Re-evaluation by your physician Discharge Instructions: - Discharge Summary Sheet kriss - Bacterial Conjunctivitis, Adult kriss - Pharyngitis kriss - Sore Throat kriss - Strep Throat, Adult kriss - Upper Respiratory Infection, Adult kriss - Viral Respiratory Infection, Nriy-Nc-Lgav kriss - Aspirin and Your Heart kriss - COVID-19 [facility] Forms: - Medication Reconciliation Form kriss - Thank You Letter kriss - Antibiotic Education kriss - Prescription Opioid Use kriss - Work release form bd Prescriptions: - Polytrim 10,000 unit- 1 mg/mL Ophthalmic drops - instill 1 drop by OPHTHALMIC route every 6 hours to left eye; 10 milliliter; kriss Refills: 0, Product Selection Permitted - ivermectin 3 mg Oral tablet - take 4 tablet by ORAL route once daily; 20 tablet; Refills: 0, Product kriss Selection Permitted - Pepcid 20 mg Oral Tablet - take 1 tablet by ORAL route every 12 hours for 10 days; 20 tablet; Refills: 0, [facility] Product Selection Permitted - Zithromax Z-Romel 250 mg Oral Tablet - take 1 tablet by ORAL route as directed for 5 days Day 1 - take two (2) tablets [facility] one time. Day 2, 3, 4 , 5 take one (1) tablet once daily.; 6 tablet; Refills: 0, Product Selection Permitted - Prednisone 20 mg Oral Tablet - take 2 tablets by ORAL route once daily for 5 days; 10 tablet; Refills: 0, [facility] Product Selection Permitted Signatures: Dispatcher [employer] EDNY Temo Rodriguez MD MD cha Smirch, Shelby, RN RN ss Goldy Yeager RN RN ll1 Corrections: (The following items were deleted from the chart) 09:40 09:08 CORONAVIRUS+ ordered. [facility] EDNY 10:36 10:35 Augmentin (Amoxicillin-Clavulanate) 875 mg PO once ordered. kriss monterroso
--- NOTE | 2021-02-16 10:39 | ER ---
Nurse's Notes [facility] Name: Lu Tiwari Age: 25 yrs Sex: Female : 1995 Arrival Date: 02/16/2021 Time: 08:52 Bed 18 Private MD: Diagnosis: Unspecified acute conjunctivitis, left eye;Acute pharyngitis, unspecified;Coronavirus infection, unspecified-covid 19 Presentation: 02/16 09:04 Ebola Screen: Patient denies travel to an Ebola-affected area in the 21 days before ll1 illness onset. No symptoms or risks identified at this time. 09:04 Method Of Arrival: Ambulatory ll1 09:07 Chief complaint: Patient states: Sore throat and nasal congestion to L side that began ss when she woke up this morning. Unknown fever. Coronavirus screen: Client presents with at least one sign or symptom that may indicate coronavirus-19. Standard/surgical mask placed on the client. Provider contacted for isolation considerations. Initial Sepsis Screen: Does the patient meet any 2 criteria? No. Patient's initial sepsis screen is negative. Does the patient have a suspected source of infection? No. Patient's initial sepsis screen is negative. Risk Assessment: Do you want to hurt yourself or someone else? Patient reports no desire to harm self or others. Onset of symptoms was February 16, 2021. 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 - Social history:: Smoking status: Patient denies any tobacco usage or history of. Screenin:57 Abuse screen: Denies threats or abuse. Nutritional screening: No deficits noted. ll1 Tuberculosis screening: No symptoms or risk factors identified. Fall Risk None identified. Total Juárez Fall Scale indicates No Risk (0-24 pts). Assessment: 09:10 General: Appears in no apparent distress. Behavior is calm, cooperative, appropriate ll1 for age. Pain: Denies pain. Neuro: No deficits noted. Cardiovascular: No deficits noted. Respiratory: Airway is patent Trachea midline Respiratory effort is even, unlabored, Respiratory pattern is regular, symmetrical, Breath sounds are clear bilaterally. EENT: Throat is reddened bilaterally Reports nasal congestion pain when swallowing. 10:10 Reassessment: No changes from previously documented assessment. Patient and/or family ll1 updated on plan of care and expected duration. Pain level reassessed. Patient is alert, oriented x 3, equal unlabored respirations, skin warm/dry/pink. Vital Signs: 09:07 BP 104 / 62; Pulse 90; Resp 14; Temp 98.7(TE); Pulse Ox 100% on R/A; Weight 53.07 kg; ss Height 5 ft. 0 in. (152.40 cm); Pain 6/10; 10:56 BP 96 / 56; Pulse 97; Resp 15; Pulse Ox 97% ; Pain 0/10; ll1 09:07 Body Mass Index 22.85 (53.07 kg, 152.40 cm) ED Course: 08:52 Patient arrived in ED. ds1 09:03 Goldy Yeager RN is Primary Nurse. ll1 09:03 Arm band placed on Patient placed in an exam room, on a stretcher. ll1 09:05 Temo Rodriguez MD is Attending Physician. [facility] 09:09 Triage completed. 10:57 Patient has correct armband on for positive identification. Bed in low position. Call ll1 light in reach. Side rails up X 1. Pulse ox on. NIBP on. 10:58 No provider procedures requiring assistance completed. Patient did not have IV access ll1 during this emergency room visit. Administered Medications: 10:36 CANCELLED (Duplicate Order): Augmentin (Amoxicillin-Clavulanate) 875 mg PO once [facility] 10:56 Drug: Zithromax (azithromycin) 500 mg Route: PO; ll1 10:56 Drug: predniSONE 40 mg Route: PO; ll1 Outcome: 10:38 Discharge ordered by . [facility] 10:58 Discharged to home ambulatory. ll1 10:58 Condition: stable 10:58 Discharge instructions given to patient, Instructed on discharge instructions, follow up and referral plans. medication usage, Demonstrated understanding of instructions, follow-up care, medications, Prescriptions given X 5 scripts 11:17 Patient left the ED. ll1 Signatures: Temo Rodriguez MD MD cha Sanford, Demi ds1 Fanny Lopez RN RN Cynthia Yeagery, RN RN ll1
[2021-02-16] MEDS ORDERED: predniSONE 20 MG TAB ONE (11:09)
[2021-02-16] MEDS ORDERED: AZITHROMYCIN 250 MG TAB ONE (11:09)
[2021-02-16 11:25] VITALS: TEMP 98.7
[2021-02-16 11:26] VITALS: BP 96/56; O2SAT 97
== END 2021-02-16 11:17 | disposition home or self-care (01) ==
LOC: ER 08:49
DX: U07.1 COVID-19 (principal); H10.32 Unspecified acute conjunctivitis, left eye; Z88.2 Allergy status to sulfonamides; Z88.5 Allergy status to narcotic agent; Z88.8 Allergy status to other drugs, medicaments and biological substances
CPT/HCPCS: 87070; 87081; 99283; J7512; U0003

== ENCOUNTER 2021-12-09 07:13 | Day surgery (SDC) | payer OTHER ==
[2021-12-05 12:45] LABS: Absolute Lymphocytes (CBC) 2.4 K/uL (0.7-4.9); Hematocrit 39.5 % (36.0-45.0); MPV 7.1 fL (7.6-11.3); RBC Red Blood Cell Count 4.62 M/uL (3.86-4.86)
[2021-12-05 13:02] LABS: Potassium 4.1 mmol/L (3.5-5.1)
[2021-12-09] MEDS ORDERED: CEFAZOLIN SODIUM 1 GM/VIAL ONE (07:39)
[2021-12-09] MEDS ORDERED: Ringers Lactate 1,000 ML IV ONE (07:39)
[2021-12-09] MEDS ORDERED: BUPIVACA 0.5%/EPI 0.0005%/PF 30 ML VIAL ONE (08:11)
[2021-12-09] MEDS ORDERED: propofoL 200 MG/20 ML VIAL IV ONE (08:48)
[2021-12-09] MEDS ORDERED: FENTANYL CITR 100 MCG/2 ML ONE (08:48)
[2021-12-09] MEDS ORDERED: KETOROLAC 30 MG/ML INJ ONE (08:49)
[2021-12-09] MEDS ORDERED: LIDOCAINE 2% MPF 5 ML VIAL ONE (08:49)
[2021-12-09] MEDS ORDERED: MIDAZOLAM HCL 2 MG/2 ML INJ ONE (08:49)
[2021-12-09] MEDS ORDERED: ROCURONIUM 50 MG/5 ML VIAL IV ONE (08:49)
[2021-12-09] MEDS ORDERED: dexAMETHasone 10 MG/ML VIAL ONE (08:49)
[2021-12-09] MEDS ORDERED: ONDANSETRON 4 MG/2 ML VIAL ONE ×2 (09:07→10:34)
--- NOTE | 2021-12-09 10:11 | P.OP ---
Preoperative diagnosis: Incarcerated umbilical hernia Postoperative diagnosis: Incarcerated umbilical hernia Primary procedure: Laparoscopic umbilical hernia repair with mesh Anesthesia: GETA + Local Estimated blood loss: <5cc Specimen: pre-peritoneal fat Findings: ~1cm incarcerated fat containing umbilical hernia Complications: None Implants: Bard Ventralite mesh with echo - 11.4cm, sorbafix Transferred to: Recovery Room Condition: Good
[2021-12-09] MEDS ORDERED: GLYCOPYRROLATE 0.2 MG/ML SYR ONE (10:16)
[2021-12-09] MEDS ORDERED: NEOSTIGMINE 1 MG/ML -10 ML VIAL ONE (10:17)
[2021-12-09] MEDS ORDERED: MEPERIDINE HCL 25 MG/ML SYR ONE (10:35)
[2021-12-09] MEDS: HYDROMORPHONE HCL 1 MG/ML INJ ONE ×2 (10:40→10:50)
[2021-12-09] MEDS ORDERED: HYDROCODONE/APAP 10/325 TAB ONE (11:18)
[2021-12-09 13:32] VITALS: BP 99/58; TEMP 97; O2SAT 99
--- NOTE | 2021-12-09 20:52 | OP ---
Date of Procedure: 12/09/2021 Surgeon: Terrence Hernandez MD, Preoperative Diagnosis: Incarcerated umbilical hernia. Postoperative Diagnosis: Incarcerated umbilical hernia. Procedure Performed: Laparoscopic umbilical hernia repair with mesh. Anesthesia: General endotracheal plus local with 0.25% Marcaine. Estimated Blood Loss: Less than 5 cc. Specimen: Preperitoneal fat. Complications: None. Findings: 1 cm incarcerated fat containing umbilical hernia. Implants: Bard Ventralight mesh with Echo Positioning System 11.4 cm, SorbaFix absorbable fixation t manolo used as well. Disposition: The patient was transferred to recovery room in good condition. Procedure In Detail: After informed consent was obtained, the patient was brought to the operating r oom and prepped and draped in the usual sterile fashion. After adequate anesthesia was achieved, an area of the left upper quadrant was anesthetized with 0.5% Marcaine with epinephrine. Estimated bloo d loss at this point was 0. After making an incision, I dissected down using a 5 mm 0-degree optical trocar into the abdomen without any evidence of complication. Insufflation was obtained to 15 mmHg at this time. There was no injury to the vital structures upon entry into the abdomen. The abdomen was inspected and found to have incarcerated preperitoneal fat contained within the umbilical hernia. I then chose an area of the left lower quadrant, similarly anesthetized, sharply incised, and a 12 mm trocar was placed under direct visualization without any evidence of complication. I then proceed ed to use the LigaSure device to remove the preperitoneal fat off the anterior abdominal wall and rem red the preperitoneal fat from the incarcerated umbilical hernia, which was approximately 1 cm in si ze. The preperitoneal fat was cleaned back to allow for an appropriate landing zone for the mesh and for suture closure of the hernia defect. I then removed the preperitoneal fat through the 12 mm tro car using an EndoCatch bag. This was sent off for pathologic examination. I then proceeded to use t he Endo Stitch with a V-Loc and sewed the umbilical hernia defect close at this point with good appos ition of the tissues. I then placed and deployed 11.[address] mesh with Echo Position ing System in the central portion of the hernia defect. I made a small stab incision to position the mesh and inflated the balloon deployment system. At this point, I used the absorbable fixation tack er of the SorbaFix to secure the mesh to the anterior abdominal wall with a single crown. At this po int, the balloon deployment system was then removed and found to be intact on the back table. At thi s point, I placed a second crown of absorbable fixation tacks on the anterior abdominal wall with goo d apposition of the mesh to the anterior abdominal wall. I then tilted the patient slightly away and closed the 12 mm trocar site using a Hebert-Michael suture passer with 0 Vicryl in an interrupted f ashion with good approximation of tissues. The abdomen was completely desufflated under direct visua lization without any complication. All skin incisions were completely irrigated and closed with a 4- 0 Monocryl in a running fashion. Dermabond was placed over top. The patient tolerated the procedure without evidence of complication and transferred back in good condition. All counts were correct at the end of the case. MARKUS/YAW Voice ID: [id number] Report ID: [id number]
== END 2021-12-09 12:15 | disposition home or self-care (01) ==
LOC: OR 07:13
PROVIDERS: ATTEND Surgery
PROC: 0WUF4JZ Supplement Abdominal Wall with Synthetic Substitute, Percutaneous Endoscopic Approach (ICD-10-PCS; principal; 2021-12-09 08:45)
DX: K42.0 Umbilical hernia with obstruction, without gangrene (principal); Z20.822 Contact with and (suspected) exposure to COVID-19
CPT/HCPCS: 85025; 80048; 36415; 88302; 49653; U0002; J2704; J2710; J2250; J3010; J1100; J2175; J1170; J7120; J2405 ×2; J0690; C1781

== ENCOUNTER 2023-05-01 08:54 | Emergency (ER) | payer BC, OTHER ==
--- NOTE | 2023-05-01 09:05 | EDPHYS ---
Physician Documentation [facility] Name: Lu Tiwari Age: 27 yrs Sex: Female : 1995 Arrival Date: 05/01/2023 Time: 08:54 Bed 6 Private MD: ED Physician Freedom Sinha HPI: 05/01 09:39 This 27 yrs old Female presents to ER via Ambulatory with complaints of Fever, Cough, kb Vomiting. 09:39 The patient presents with sore throat. The patient describes throat pain as constant. kb Onset: The symptoms/episode began/occurred 3 day(s) ago. Severity of symptoms: At their worst the symptoms were moderate, in the emergency department the symptoms are unchanged. Modifying factors: The symptoms are alleviated by nothing, the symptoms are aggravated by swallowing, Patient's oral intake status: good. Associated signs and symptoms: Pertinent positives: fever, Sore throat vomiting. The patient has not experienced similar symptoms in the past. The patient has not recently seen a physician. 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 - Social history:: Smoking status: Patient denies any tobacco usage or history of. ROS: 09:32 Respiratory: Negative for shortness of breath, cough, wheezing, and pleuritic chest kb pain, 09:32 Constitutional: Positive for fever, 09:32 ENT: Positive for sore throat, 09:32 Abdomen/GI: Positive for nausea and vomiting, Negative for abdominal pain, 09:32 All other systems are negative, Exam: 09:32 Constitutional: This is a well developed, well nourished patient who is awake, alert, kb and in no acute distress. Head/Face: Normocephalic, atraumatic. Cardiovascular: Regular rate Respiratory: Respirations even and unlabored. No increased work of breathing. Talking in full sentences Abdomen/GI: Soft, non-tender. No distention Skin: Warm, dry with normal turgor. Normal color. MS/ Extremity: Pulses equal, no cyanosis. Neurovascular intact. Full, normal range of motion. Neuro: Awake and alert, GCS 15, oriented to person, place, time, and situation. Moves all extremities. Normal gait. 09:32 ENT: External ear(s): are unremarkable, Ear canal(s): are normal, TM's: are normal, Nose: is normal, Posterior pharynx: Airway: normal, no evidence of obstruction, Tonsils: bilaterally enlarged, with erythema, with exudate, Uvula: normal, midline, swelling, that is moderate, erythema, that is mild, that is moderate, exudate, that is moderate, Vital Signs: 09:03 BP 108 / 72; Pulse 122; Resp 17; Temp 99.3; Pulse Ox 98% ; Weight 49.9 kg; Height 5 ft. jl7 1 in. ; 09:46 BP 111 / 69; Pulse 100; Resp 18; Pulse Ox 98% on R/A; ld1 09:03 Body Mass Index 20.78 (49.90 kg, 154.94 cm) jl7 MDM: 08:57 Patient medically screened. kb 09:38 Differential diagnosis: pharyngitis, tonsillitis, strep, mono. Data reviewed: vital kb signs, nurses notes. Counseling: I had a detailed discussion with the patient and/or guardian regarding the historical points, exam findings, and any diagnostic results supporting the discharge/admit diagnosis, the need for outpatient follow up, a family practitioner, to return to the emergency department if symptoms worsen or persist or if there are any questions or concerns that arise at home. 05/01 09:05 Order name: PO challenge; Complete Time: 09:13 kb 05/01 09:40 Order name: IV Start; Complete Time: 09:46 kb Administered Medications: 09:12 Drug: Dexamethasone IM 10 mg IM once Route: IM; Site: right deltoid; ld1 09:24 Not Given (Physician Discretion): ns 0.9% 1000 ml IV at 1000 ml once kb 09:24 Not Given (Physician Discretion): [id number] mg IVP once kb 09:25 Drug: Ondansetron PO 4 mg PO once Route: PO; ld1 09:46 Follow up: Response: Nausea unchanged ld1 09:25 Drug: Ibuprofen PO 600 mg PO once Route: PO; ld1 09:46 Drug: NS 0.9% IV 1000 ml IV at 1000 ml once Route: IV; Rate: 1000 ml; Site: right ld1 antecubital; 09:46 Drug: Ondansetron IVP 4 mg IVP once; over 2 minutes Route: IVP; Site: right antecubital;ld1 Disposition: 14:21 Co-signature as Attending Physician, Freedom Sinha MD I reviewed the patient's care rn provided by the Advanced Practice Provider and agree with the diagnosis and treatment plan. Disposition Summary: 05/01/23 09:04 Discharge Ordered Notes: Location: Home kb Condition: Stable kb Diagnosis - Streptococcal pharyngitis kb Followup: kb - With: Emergency Department - When: As needed - Reason: Worsening of condition Followup: kb - With: Private Physician - When: 2 - 3 days - Reason: Recheck today's complaints, Continuance of care, Re-evaluation by your physician Discharge Instructions: - Discharge Summary Sheet kb - Strep Throat, Adult, [id number] kb Forms: - Medication Reconciliation Form kb - Thank You Letter kb - Antibiotic Education kb - Prescription Opioid Use kb - Patient Portal Instructions kb - Leadership Thank You Letter kb Prescriptions: - ondansetron 4 mg Oral Tablet,disintegrating - take 1 tablet ORAL route every 6 hours As needed as needed for nausea and kb vomiting; 12 tablet; Refills: 0, Product Selection Permitted - Augmentin 875-125 mg Oral Tablet - take 1 tablet ORAL route every 12 hours for 10 days; 20 tablet; Refills: 0, kb Product Selection Permitted Signatures: Yi Thakkar, KEREN-Osvaldo BARRP-Freedom Rosales MD MD rn Leal, Jahala, RN RN jl7 Magui Purdy RN RN ld1 Corrections: (The following items were deleted from the chart) 09:25 09:14 IV Saline Lock ordered. kb ld1
[2023-05-01] MEDS ORDERED: dexAMETHasone 10 MG/ML VIAL ONE (09:22)
[2023-05-01] MEDS ORDERED: PROMETHAZINE INJ 25 MG/ML AMP ONE (09:33)
[2023-05-01] MEDS ORDERED: NA CHLORIDE 0.9% 1,000 ML ONE (09:33)
[2023-05-01] MEDS ORDERED: IBUPROFEN 200 MG TAB PO ONE (09:36)
[2023-05-01] MEDS ORDERED: ONDANSETRON 4 MG (ODT) TAB ONE (09:36)
[2023-05-01] MEDS ORDERED: ONDANSETRON 4 MG/2 ML VIAL ONE (09:52)
--- NOTE | 2023-05-01 11:02 | ER ---
Nurse's Notes [facility] Name: Lu Tiwari Age: 27 yrs Sex: Female : 1995 Arrival Date: 05/01/2023 Time: 08:54 Bed 6 Private MD: Diagnosis: Streptococcal pharyngitis Presentation: 05/01 09:03 Chief complaint: Patient states: Sore throat, fever x 2 days, vomiting last night. jl7 Coronavirus screen: At this time, the client does not indicate any symptoms associated with coronavirus-19. Ebola Screen: No symptoms or risks identified at this time. Initial Sepsis Screen: Does the patient meet any 2 criteria? No. Patient's initial sepsis screen is negative. Does the patient have a suspected source of infection? No. Patient's initial sepsis screen is negative. Risk Assessment: Do you want to hurt yourself or someone else? Patient reports no desire to harm self or others. Onset of symptoms was April 29, 2023. 09:03 Method Of Arrival: Ambulatory [facility] 09:03 Acuity: XANDER 4 jl7 Triage Assessment: 09:05 General: Appears in no apparent distress. uncomfortable, Behavior is calm, cooperative, jl7 appropriate for age. Pain: Complains of pain in sore throat. GI: Reports nausea, vomiting. 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 - Social history:: Smoking status: Patient denies any tobacco usage or history of. Screenin:46 [facility] ED Fall Risk Assessment (Adult) History of falling in the last 3 months, ld1 including since admission No falls in past 3 months (0 pts). Abuse screen: Denies threats or abuse. Denies injuries from another. Nutritional screening: No deficits noted. Tuberculosis screening: No symptoms or risk factors identified. Assessment: 09:46 General: Appears in no apparent distress. comfortable, Behavior is calm, cooperative, ld1 appropriate for age. Pain: Denies pain. Neuro: Level of Consciousness is awake, alert, obeys commands, Oriented to person, place, time, situation. Cardiovascular: Capillary refill < 3 seconds Patient's skin is warm and dry. Rhythm is sinus tachycardia. Respiratory: Airway is patent Respiratory effort is even, unlabored. GI: Abdomen is flat, non-distended, Reports nausea. : No signs and/or symptoms were reported regarding the genitourinary system. EENT: No signs and/or symptoms were reported regarding the EENT system. Derm: Skin temperature is warm. Musculoskeletal: No signs and/or symptoms reported regarding the musculoskeletal system. 09:48 Reassessment: Pt unable to keep medication down- reports throwing up after medication ld1 consumed. Notified ERP. See MAR for orders. Vital Signs: 09:03 BP 108 / 72; Pulse 122; Resp 17; Temp 99.3; Pulse Ox 98% ; Weight 49.9 kg; Height 5 ft. jl7 1 in. ; 09:46 BP 111 / 69; Pulse 100; Resp 18; Pulse Ox 98% on R/A; ld1 09:03 Body Mass Index 20.78 (49.90 kg, 154.94 cm) jl7 ED Course: 08:56 Patient arrived in ED. rg4 08:57 [facility]C [facility] kb 08:57 Freedom Sinha MD is Attending Physician. kb 09:05 Triage completed. jl7 09:05 Arm band placed on right wrist. jl7 09:46 Magui Purdy, LANETTE is Primary Nurse. ld1 09:46 Patient has correct armband on for positive identification. Placed in gown. Bed in low ld1 position. Call light in reach. Side rails up X2. Pulse ox on. NIBP on. Door closed. Noise minimized. Warm blanket given. 09:46 No provider procedures requiring assistance completed. Inserted saline lock: 20 gauge ld1 in right antecubital area, using aseptic technique. Blood collected. 11:01 IV discontinued, intact, bleeding controlled, No redness/swelling at site. ld1 Administered Medications: 09:12 Drug: Dexamethasone IM 10 mg IM once Route: IM; Site: right deltoid; ld1 09:24 Not Given (Physician Discretion): ns 0.9% 1000 ml IV at 1000 ml once kb 09:24 Not Given (Physician Discretion): kazqoypgplsa16.5 mg IVP once kb : Drug: Ondansetron PO 4 mg PO once Route: PO; ld1 :46 Follow up: Response: Nausea unchanged ld1 : Drug: Ibuprofen PO 600 mg PO once Route: PO; ld1 :46 Drug: NS 0.9% IV 1000 ml IV at 1000 ml once Route: IV; Rate: 1000 ml; Site: right ld1 antecubital; :46 Drug: Ondansetron IVP 4 mg IVP once; over 2 minutes Route: IVP; Site: right antecubital;ld1 Medication: :46 VIS not applicable for this client. ld1 Outcome: :04 Discharge ordered by . kb 11:00 Discharged to home ambulatory, with family, ld1 11:00 Condition: stable 11:00 Discharge instructions given to patient, family, Instructed on discharge instructions, follow up and referral plans. medication usage, Demonstrated understanding of instructions, follow-up care, medications, Prescriptions given X 2, 11:01 Patient left the ED. ld1 Signatures: Yi Thakkar, POULTRY FARM MANAGER-C POULTRY FARM MANAGER-Charlotte Laurent rg4 Noemi Messer RN RN jl7 Magui Purdy RN RN ld1
[2023-05-01 11:08] VITALS: TEMP 99.3; O2SAT 98
[2023-05-01 11:09] VITALS: BP 111/69
== END 2023-05-01 11:01 | disposition home or self-care (01) ==
LOC: ER 08:54
DX: J02.0 Streptococcal pharyngitis (principal); Z88.2 Allergy status to sulfonamides; Z88.5 Allergy status to narcotic agent; Z88.8 Allergy status to other drugs, medicaments and biological substances
CPT/HCPCS: 96372; 96374; 99284; J2550; Q0162; J1100; J2405; J7030

== ENCOUNTER 2025-05-02 11:04 | Emergency (ER) | payer SELFPAY ==
[2025-05-02] MEDS ORDERED: BENZONATATE 100 MG CAP PO ONE (11:23)
[2025-05-02 12:42] LABS: Influenza A Ag Negative; Influenza B Ag Negative; SARS-CoV-2 Antigen Rapid Res Negative (Negative)
--- NOTE | 2025-05-02 12:52 | ER ---
Nurse's Notes [facility] Name: Lu Tiwari Age: 29 yrs Sex: Female : 1995 Arrival Date: 05/02/2025 Time: 11:04 Bed 14 Private MD: Diagnosis: Acute upper respiratory infection, unspecified;Cough Presentation: 05/02 11:13 Chief complaint: Patient states: cough with thick green sputum, congestion, sore me1 throat, fever, body aches, chills that started Sunday. Having difficulty sleeping due to cough. Took advil 1 hour ago. Coronavirus screen: Vaccine status: Patient reports being unvaccinated. Ebola Screen: No symptoms or risks identified at this time. Initial Sepsis Screen: Does the patient meet any 2 criteria? HR > 90 bpm. Does the patient have a suspected source of infection? No. Patient's initial sepsis screen is negative. Risk Assessment: Do you want to hurt yourself or someone else? Patient reports no desire to harm self or others. Onset of symptoms was April 27, 2025. 11:13 Method Of Arrival: Ambulatory me1 11:13 Acuity: XANDER 3 me1 Historical: - Allergies: 11:15 Morphine; me1 11:15 promethazine HCl; me1 11:15 Sulfa (Sulfonamide Antibiotics); me1 - Home Meds: 11:15 None [Active]; me1 - PMHx: 11:15 None; me1 - PSHx: 11:15 hernia repair; section; me1 - Immunization history:: Adult Immunizations up to date. - Infectious Disease History:: Denies. - Social history:: Smoking status: Patient denies any tobacco usage or history of. Screenin:28 [facility] ED Fall Risk Assessment (Adult) History of falling in the last 3 months, jb4 including since admission No falls in past 3 months (0 pts) Confusion or Disorientation No (0 pts) Intoxicated or Sedated No (0 pts) Impaired Gait No (0 pts) Mobility Assist Device Used No (0 pt) Altered Elimination No (0 pt) Score/Fall Risk Level 0 - 2 = Low Risk Oriented to surroundings, Maintained a safe environment. Abuse screen: Denies threats or abuse. Nutritional screening: No deficits noted. Tuberculosis screening: No symptoms or risk factors identified. Assessment: 11:26 General: Appears in no apparent distress. comfortable, Behavior is calm, cooperative, jb4 appropriate for age. Pain: Complains of pain in throat Pain does not radiate. Pain currently is 6 out of 10 on a pain scale. Neuro: Level of Consciousness is awake, alert, obeys commands, Oriented to person, place, time, situation. Cardiovascular: Patient's skin is warm and dry. Respiratory: Airway is patent Respiratory effort is even, unlabored, Respiratory pattern is regular, symmetrical. EENT: Throat is clear is reddened with gag reflex present. Derm: Skin is intact, Skin is pink, warm \T\ dry. Musculoskeletal: Circulation, motion, and sensation intact. Range of motion: intact in all extremities. 12:29 Reassessment: Patient appears in no apparent distress at this time. Patient and/or jb4 family updated on plan of care and expected duration. Pain level reassessed. Patient is alert, oriented x 3, equal unlabored respirations, skin warm/dry/pink. Patient states feeling better. Vital Signs: 11:13 BP 109 / 75; Pulse 107; Resp 20; Temp 98.4; Pulse Ox 99% ; Weight 63.5 kg; Height 5 ft. me1 1 in. ; Pain 6/10; 11:13 Body Mass Index 26.45 (63.50 kg, 154.94 cm) me1 11:13 Pain Scale: Adult ne1 ED Course: 11:06 Patient arrived in ED. im 11:07 Temo Rodriguez MD is Attending Physician. [facility] 11:15 Triage completed. me1 11:15 Arm band placed on Patient placed in an exam room. me1 11:16 Larry Uribe, LANETTE is Primary Nurse. jb4 11:28 Patient has correct armband on for positive identification. Bed in low position. Call jb4 light in reach. Side rails up X 1. Provided Education on: plan of care. 11:28 Group A Streptococcus Rapid Sent. jb4 11:28 COVID-19 Ag + Flu A+B Ag Sent. jb4 11:28 No provider procedures requiring assistance completed. Patient did not have IV access jb4 during this emergency room visit. 12:45 Chest Pa And Lat (2 Views) XRAY In Process Unspecified. EDMS Administered Medications: 11:28 Drug: Tessalon Perle PO 200 mg PO once Route: PO; jb4 Outcome: 12:51 Discharge ordered by . kriss 13:06 Discharged to home ambulatory, jb4 13:06 Condition: stable 13:06 Discharge instructions given to patient, Instructed on discharge instructions, follow up and referral plans. no drinking with medication, no driving heavy equipment, medication usage, Demonstrated understanding of instructions, follow-up care, medications, Prescriptions given X 4, 13:06 Patient left the ED. jb4 Signatures: Dispatcher [employer] EDTemo Buckner MD MD cha Bryson, James, RN RN jb4 Rach Daugherty Michelle, RN RN me1
--- NOTE | 2025-05-02 12:52 | EDPHYS ---
Physician Documentation [facility] Name: Lu Tiwari Age: 29 yrs Sex: Female : 1995 Arrival Date: 05/02/2025 Time: 11:04 Bed 14 Private MD: ED Physician Temo Rodriguez HPI: 05/02 12:47 This 29 yrs old Female presents to ER via Ambulatory with complaints of Sore kriss Throat, Shortness Of Breath, Cough. 12:47 The patient presents with sore throat. The patient describes throat pain as burning, kriss constant. Severity of symptoms: At their worst the symptoms were moderate, in the emergency department the symptoms are unchanged. Historical: - Allergies: 11:15 Morphine; me1 11:15 promethazine HCl; me1 11:15 Sulfa (Sulfonamide Antibiotics); me1 - Home Meds: 11:15 None [Active]; me1 - PMHx: 11:15 None; me1 - PSHx: 11:15 hernia repair; section; me1 - Immunization history:: Adult Immunizations up to date. - Infectious Disease History:: Denies. - Social history:: Smoking status: Patient denies any tobacco usage or history of. ROS: 12:47 Constitutional: Negative for fever, chills, and weight loss, Eyes: Negative for injury, kriss pain, redness, and discharge, Neck: Negative for injury, pain, and swelling, Cardiovascular: Negative for chest pain, palpitations, and edema, Abdomen/GI: Negative for abdominal pain, nausea, vomiting, diarrhea, and constipation, Back: Negative for injury and pain, : Negative for injury, bleeding, discharge, and swelling, MS/Extremity: Negative for injury and deformity, Skin: Negative for injury, rash, and discoloration, Neuro: Negative for headache, weakness, numbness, tingling, and seizure, Psych: Negative for depression, anxiety, suicide ideation, homicidal ideation, and hallucinations, Allergy/Immunology: Negative for hives, rash, and allergies, Endocrine: Negative for neck swelling, polydipsia, polyuria, polyphagia, and marked weight changes, 12:47 ENT: Positive for sore throat, 12:47 Respiratory: Positive for cough, "sounds productive", Exam: 12:47 Constitutional: This is a well developed, well nourished patient who is awake, alert, kriss and in no acute distress. Head/Face: Normocephalic, atraumatic. Eyes: Pupils equal round and reactive to light, extra-ocular motions intact. Lids and lashes normal. Conjunctiva and sclera are non-icteric and not injected. Cornea within normal limits. Periorbital areas with no swelling, redness, or edema. ENT: Nares patent. No nasal discharge, no septal abnormalities noted. Tympanic membranes are normal and external auditory canals are clear. Oropharynx with no redness, swelling, or masses, exudates, or evidence of obstruction, uvula midline. Mucous membranes moist. Neck: Trachea midline, no thyromegaly or masses palpated, and no cervical lymphadenopathy. Supple, full range of motion without nuchal rigidity, or vertebral point tenderness. No Meningismus. Chest/axilla: Normal chest wall appearance and motion. Nontender with no deformity. No lesions are appreciated. Cardiovascular: Regular rate and rhythm with a normal S1 and S2. No gallops, murmurs, or rubs. Normal PMI, no JVD. No pulse deficits. Respiratory: Lungs have equal breath sounds bilaterally, clear to auscultation and percussion. No rales, rhonchi or wheezes noted. No increased work of breathing, no retractions or nasal flaring. Abdomen/GI: Soft, non-tender, with normal bowel sounds. No distension or tympany. No guarding or rebound. No evidence of tenderness throughout. Back: No spinal tenderness. No costovertebral tenderness. Full range of motion. Skin: Warm, dry with normal turgor. Normal color with no rashes, no lesions, and no evidence of cellulitis. Neuro: Awake and alert, GCS 15, oriented to person, place, time, and situation. Cranial nerves II-XII grossly intact. Motor strength 5/5 in all extremities. Sensory grossly intact. Cerebellar exam normal. Normal gait. Psych: Awake, alert, with orientation to person, place and time. Behavior, mood, and affect are within normal limits. 12:47 Musculoskeletal/extremity: DVT Exam: No signs of deep vein thrombosis. no pain, no swelling, no tenderness, negative Homans' sign noted on exam, no appreciated bluish discoloration, no erythema, no increased warmth, Vital Signs: 11:13 BP 109 / 75; Pulse 107; Resp 20; Temp 98.4; Pulse Ox 99% ; Weight 63.5 kg; Height 5 ft. me1 1 in. ; Pain 6/10; 11:13 Body Mass Index 26.45 (63.50 kg, 154.94 cm) me1 11:13 Pain Scale: Adult me1 MDM: 11:07 Medical Screening Exam initiated kriss 12:48 Differential diagnosis: Allergic rhinitis, apthous stomatitis, cocksackie virus, kriss gastroesophageal reflux disease, group A strep tonsillitis, influenza, laryngitis, mononucleosis, pharyngitis, tonsillitis, tracheobronchitis, upper respiratory infection, uvulitis, viral syndrome. Differential Diagnosis: Obstructed Airway Bronchitis Influenza Upper Respiratory Infection Sinusitis Pharyngitis Otitis Media Asthma Exacerbation Viral Syndrome Pneumonia Tracheal Injury. Data reviewed: vital signs, nurses notes, lab test result(s), Flu: radiologic studies, plain films. Consideration of Admission/Observation Escalation of care including admission/observation considered. Independent interpretation of the following test(s) in the Emergency Department X-Ray: My interpretation is cxr neg. Test considered but Not performed: CT: no ct chest. Historians other than the Patient: Spouse/Significant Other: well informed. Care significantly affected by the following chronic conditions: no hx. 05/02 11:14 Order name: COVID-19 Ag + Flu A+B Ag; Complete Time: 12:43 [facility] 05/02 11:14 Order name: Group A Streptococcus Rapid; Complete Time: 12:43 [facility] 05/02 12:40 Order name: Throat Culture [facility] 05/02 11:14 Order name: Chest Pa And Lat (2 Views) XRAY kriss Administered Medications: 11:28 Drug: Tessalon Perle PO 200 mg PO once Route: PO; jb4 Disposition Summary: 05/02/25 12:51 Discharge Ordered Notes: Location: Home [facility] Problem: new kriss Symptoms: have improved kriss Condition: Stable kriss Diagnosis - Acute upper respiratory infection, unspecified kriss - Cough kriss Followup: kriss - With: Private Physician - When: 2 - 3 days - Reason: Recheck today's complaints, Continuance of care, Re-evaluation by your physician Discharge Instructions: - Discharge Summary Sheet kriss - Upper Respiratory Infection, Adult kriss - Cool Mist Vaporizer kriss - Cough, Adult, [id number] kriss - Cough, Adult kriss Forms: - Medication Reconciliation Form kriss - Antibiotic Education kriss - Prescription Opioid Use kriss - Patient Portal Instructions [facility] - Leadership Thank You Letter [facility] Prescriptions: - Tessalon Perles 100 mg Oral capsule - take 2 capsule ORAL route every 8 hours As needed; 30 capsule; Refills: 0, kriss Product Selection Permitted - Medrol (Romel) 4 mg Oral Tablets, Dose Pack - take 1 tablet ORAL route as directed - follow package instructions; 1 packet; kriss Refills: 0, Product Selection Permitted - Guaifenesin AC 10-100 mg/5 mL Oral liquid - take 7.5 milliliter ORAL route every 6 hours As needed prn cough; 160 kriss milliliter; Refills: 0, Product Selection Permitted - Zithromax 500 mg Oral Tablet - take 1 tablet ORAL route once daily for 5 days; 5 tablet; Refills: 0, Product kriss Selection Permitted Signatures: Dispatcher [employer] EDMS Temo Rodriguez MD MD cha Bryson, James, RN RN jb4 Kiara Cagle RN RN me1 Corrections: (The following items were deleted from the chart) 11:15 11:15 Chest Pa And Lat (2 Views)+RAD.RAD.BRZ ordered. EDMS EDMS 11:15 11:15 COVID-19 Ag + Flu A+B Ag+I.LAB.BRZ ordered. EDMS EDMS 11:15 11:15 Group A Streptococcus Rapid Sc+I.LAB.BRZ ordered. EDMS EDMS
--- NOTE | 2025-05-02 13:04 | RAD REPORT ---
Procedure: Chest Pa And Lat (2 Views) HISTORY: Cough COMPARISON: none FINDINGS: The lungs appear clear of acute infiltrate. No significant pleural effusion noted. The heart is normal size. IMPRESSION: No acute abnormality is displayed.
[2025-05-02 17:12] VITALS: BP 109/75; TEMP 98.4; O2SAT 99
== END 2025-05-02 13:06 | disposition home or self-care (01) ==
LOC: ER 11:04
DX: J06.9 Acute upper respiratory infection, unspecified (principal); Z11.52 Encounter for screening for COVID-19
CPT/HCPCS: 36415; 71046; 87070; 87428; 99283